=== PATIENT | male | born 1960 ===

== ENCOUNTER 2025-01-14 14:32 | Inpatient (IN) | payer OTHER, SELFPAY ==
[2025-01-14] VITALS (30 sets, daily range): BP systolic 91–127; BP diastolic 58–85; BMI 26.3; BMI 25.2
--- NOTE | 2025-01-14 12:35 | ED.GENMED ---
Addendum entered and electronically signed by Adal Nesbitt PA-C 01/14/25 16:29:
Please note dictation error in MDM, it should read 'fomepizole' instead of omeprazole, for treatment of toxic alcohol ingestion
Original Note:
History of Present Illness
<Adal Nesbitt PA-C - Last Filed: 01/14/25 16:03>
General
Chief Complaint: Overdose Intentional
Time Seen by Provider: 01/14/25 12:28
History of Present Illness
History of Present Illness:
64-year-old male arrives via EMS for evaluation of altered mental status and suspected intentional overdose. Patient was found by his spouse in the vehicle of a nearby parking lot, the car was not running at the time. She states he was talking to
him and admitted to being intoxicated, noted that there was a cup of 'bourbon' as well as a 'red bottle' of an unspecified liquid in the car with him. EMS reported to nursing staff that the patient was found with 'empty bottles of whiskey,
gasoline, and antifreeze'. On arrival the patient is somnolent and does not answer questions appropriately. On initial evaluation the is not present for further history
Review of Systems
<Adal Nesbitt PA-C - Last Filed: 01/14/25 16:03>
Review of Systems
Allergies reviewed?: Yes
All Other Systems: ROS reviewed and negative except as documented in HPI and ROS
Phy Exam
<Adal Nesbitt PA-C - Last Filed: 01/14/25 16:03>
Physical Exam
Physical Exam:
GEN: Somnolent
Eyes: PERRLA, EOMs intact, no scleral icterus
HENT: NCAT, oral mucosa moist
Lungs: CTAB, no wheezes, rales, rhonchi, normal chest wall excursion
Cardiac: RRR, no M/R/G, no peripheral edema. Radial pulses 2+ bilat
Abdomen: S, NT, ND, NABS, no masses or hepatosplenomegaly
Neuro: Somnolent, arouses to loud verbal stimuli, speech slurred and markedly confused, does not follow commands
MSK: No gross deformity or ecchymosis. No edema. No digital clubbing
Skin: No rashes, petechiae. Normal color, no pallor or jaundice.
Psych: Calm, cooperative, proper hygiene
Course
<Adal Nesbitt PA-C - Last Filed: 01/14/25 16:03>
Orders/Labs/Results
Orders:
Orders
01/14/25 12:24
Etomidate [Amidate] 40 mg .ROUTE .STK-MED ONE
Succinylcholine Chloride [Anectine] 200 mg .ROUTE .STK-MED ONE
01/14/25 12:30
Electrocardiogram (*1) Urgent
Reason for Study: QTc Monitoring
EKG- Treatment ONCE
Lactic Acid Q4H
Comment: CANCEL 2nd LACTIC ACID IF 1st LACTIC ACID IS LESS THAN 2
01/14/25 12:39
Acetaminophen Urgent
Alcohol Urgent
Complete Blood Count/With Diff Urgent
Comprehensive Metabolic Panel Urgent
Lactic Acid Q4H
Comment: CANCEL 2nd LACTIC ACID IF 1st LACTIC ACID IS LESS THAN 2
Salicylate Urgent
Serum Osmolality Urgent
Venous Blood Gas Urgent
%Oxygen/Room Air: 97
01/14/25 12:41
Ondansetron Injectable [Zofran] 4 mg IV NOW STA
01/14/25 13:03
0.9% Sodium Chloride 1000 ml [Nss] 1,000 ml IV BOLUS
01/14/25 13:07
Fomepizole 1,320 mg 0.9% Sodium Chloride 100 ml [Nss] 100 ml IV NOW
Thiamine Injection 100 mg IV NOW STA
01/14/25 13:15
Propofol 1,000,000 Mcg/100 ml [Diprivan] 1,000,000 mcg in 100 ml IV PER PROTOCOL
Indication:: Deep Sedation
Begin Infusion:: Now
Goal:: RASS -3 to -5 or BIS < 60 or ventilator synchrony
Maximum dose in mcg/kg/min:: 50
Initial Dose in mcg/kg/min:: 20
Titration Instructions:: Titrate by 5-10 mcg/kg/min every 5 minutes until RASS -3 to -5 or
Titration Instructions:: BIS < 60 or ventilator synchrony is met.
Titration Instructions:: Administer analgesia bolus dose(s) & titrate analgesia prior to
Titration Instructions:: adjusting sedation.
Taper Instructions:: If RASS is at or below goal for 4 consecutive hours decrease infusion by
Taper Instructions:: 5-10 mcg/kg/min every 2 hours. Do not wean infusion to off if patient is
Taper Instructions:: receiving a continuous NMBA or has received bolus NMBA with the past 3 hrs
Over-sedation Instructions:: If BIS < 40 and synchronous with ventilator decrease infusion by
Over-sedation Instructions:: 5-10 mcg/kg/min every 2 hour until BIS = 40-60.
Notify provider:: immediately if patient exhibits signs/symptoms of propofol-related
Notify provider:: infusion syndrome.
Additional Instructions:: Patient MUST be mechanically ventilated and MUST receive analgesia.
01/14/25 13:28
CR Chest Portable - 1 View Urgent
Comment:
Reason For Exam: post intubation
Reason Study Needs to be Portable: Unable to Transport
01/14/25 13:53
CT Head W/o Iv Contrast Urgent
Comment:
Reason For Exam: AMS
Shelley Placement- Treatment ONCE
Reason for insertion: I&O's Critical Care
01/14/25 13:54
Add On- LAB Routine
Tests Added?: serum methanol, serum isopropanol
01/14/25 14:00
Ethylene Glycol [S] Routine
Triglycerides Routine
Comment: baseline levels with propofol infusion
01/14/25 14:02
Admit/Transfer Patient As Directed
Co-Sign Provider:
Level of Care: Inpatient admission
Assign to:: ICU
Physician / Group: Hospitalist
Diagnosis: Polysubstance Intoxication/Suicide Attempt
Patient Condition: Serious
Reason for Hospitalization: Intubation for airway protection
IV medication for polysubstance ingestion/suicide attempt
Possible dialysis
Expected length of stay greater than two midnights?: Yes
ELOS- Estimated Length of Stay in days: 5
I certify the patient meets the requirements for IP care: Yes
Urinalysis Reflex To Culture Urgent
Date Specimen was Collected: 01/14/25
Time Specimen was Collected: 14:01
Urine Drug Abuse Screen Urgent
Date Specimen was Collected: 01/14/25
Time Specimen was Collected: 14:01
Urine Microscopic Reflex Cult Urgent
PRN Pain Medication Management As Directed
May give lesser potent ordered pain med per pt: Yes
preference::
Protocol:: Medication orders for pain may be administered in a
manner that supports deferring to patient preference
when the pt is:
- Requesting an ordered lesser potent pain medication.
Least to most potent pain medications are defined
as: acetaminophen < NSAID < tramadol < opioids
(morphine, oxycodone, hydromorphone).
- Requesting a lesser dose of the same medication IF
ORDERED.
- Requesting a less intrusive route of administration
if both routes are prescribed by the provider (PO <
IV).
01/14/25 14:15
Code Status As Directed
Resuscitation Status: Full Code
01/14/25 15:05
Carboxyhemoglobin Urgent
01/14/25 15:48
CMP [Comprehensive Metabolic Panel] Q2H
Serum Osmolality Q2H
Venous Blood Gas Q2H
%Oxygen/Room Air: 100
Comment: intubated, sedated, antifreeze ingestion
01/14/25 15:48
DX Deep Vein Thrombosis Video Routine
01/14/25 17:48
CMP [Comprehensive Metabolic Panel] Q2H
Serum Osmolality Q2H
Venous Blood Gas Q2H
%Oxygen/Room Air: 100
Comment: intubated, sedated, antifreeze ingestion
01/14/25 18:00
Enoxaparin Sodium [Lovenox] 40 mg SC QPM
01/14/25 19:48
CMP [Comprehensive Metabolic Panel] Q2H
Serum Osmolality Q2H
Venous Blood Gas Q2H
%Oxygen/Room Air: 100
Comment: intubated, sedated, antifreeze ingestion
01/14/25 21:48
CMP [Comprehensive Metabolic Panel] Q2H
Serum Osmolality Q2H
Venous Blood Gas Q2H
%Oxygen/Room Air: 100
Comment: intubated, sedated, antifreeze ingestion
01/14/25 23:48
Serum Osmolality Q2H
01/15/25 01:00
Fomepizole 880 mg 0.9% Sodium Chloride 100 ml [Nss] 100 ml IV Q12H
01/17/25 06:00
Triglycerides Q3D
Comment: every 72 hours while patient is on propofol
01/20/25 06:00
Triglycerides Q3D
Comment: every 72 hours while patient is on propofol
01/23/25 06:00
Triglycerides Q3D
Comment: every 72 hours while patient is on propofol
Abnormal Lab Results
01/14/25 01/14/25
12:39 14:02
RBC 3.56 L 10^6/uL
(4.70-6.10)
Hgb 12.7 L g/dL
(13.0-18.0)
Hct 36.9 L %
(39.0-52.0)
MCV 103.7 H fL
(80.0-94.0)
MCH 35.7 H pg
(27.0-31.0)
VBG pCO2 51 H mmHg
(35-48)
VBG pO2 58 H mmHg
(30-50)
VBG HCO3 30.2 H mmol/L
(22-27)
Glucose 101 H mg/dl
(70-99)
Serum Osmolality 454 H mOsm/kg
(275-300)
Lactic Acid 3.2 H mmol/L
(0.7-2.0)
Alkaline Phosphatase 30 L U/L
(38-126)
Ur Occult Blood Reflex 1+ A
(Negative)
Urine Albumin (Reflex) 1+ A
(Neg - Trace)
Salicylates < 1.0 L mg/dl
(2.0-20.0)
Acetaminophen < 10 L ug/ml
(10-30)
01/14/25 12:39
01/14/25 12:39
Vital Signs
Initial and Last Documented VS:
Initial Vital Signs
Pulse Resp Pulse Ox
90 13 90
01/14/25 12:30 01/14/25 12:30 01/14/25 12:30
Last Documented Vital Signs
Temp Pulse Resp BP Pulse Ox
97.7 F 88 16 91/58 100
01/14/25 12:45 01/14/25 15:00 01/14/25 15:00 01/14/25 15:00 01/14/25 15:00
<Gabo Whitney, - Last Filed: 01/14/25 13:38>
Orders/Labs/Results
Orders:
Orders
01/14/25 12:24
Etomidate [Amidate] 40 mg .ROUTE .STK-MED ONE
Succinylcholine Chloride [Anectine] 200 mg .ROUTE .STK-MED ONE
01/14/25 12:30
Electrocardiogram (*1) Urgent
Reason for Study: QTc Monitoring
EKG- Treatment ONCE
Lactic Acid Q4H
Comment: CANCEL 2nd LACTIC ACID IF 1st LACTIC ACID IS LESS THAN 2
01/14/25 12:39
Acetaminophen Urgent
Alcohol Urgent
Complete Blood Count/With Diff Urgent
Comprehensive Metabolic Panel Urgent
Lactic Acid Q4H
Comment: CANCEL 2nd LACTIC ACID IF 1st LACTIC ACID IS LESS THAN 2
Salicylate Urgent
Serum Osmolality Urgent
Venous Blood Gas Urgent
%Oxygen/Room Air: 97
01/14/25 12:41
Ondansetron Injectable [Zofran] 4 mg IV NOW STA
01/14/25 13:03
0.9% Sodium Chloride 1000 ml [Nss] 1,000 ml IV BOLUS
01/14/25 13:07
Fomepizole 1,320 mg 0.9% Sodium Chloride 100 ml [Nss] 100 ml IV NOW
Thiamine Injection 100 mg IV NOW STA
01/14/25 13:15
Propofol 1,000,000 Mcg/100 ml [Diprivan] 1,000,000 mcg in 100 ml IV PER PROTOCOL
Indication:: Deep Sedation
Begin Infusion:: Now
Goal:: RASS -3 to -5 or BIS < 60 or ventilator synchrony
Maximum dose in mcg/kg/min:: 50
Initial Dose in mcg/kg/min:: 20
Titration Instructions:: Titrate by 5-10 mcg/kg/min every 5 minutes until RASS -3 to -5 or
Titration Instructions:: BIS < 60 or ventilator synchrony is met.
Titration Instructions:: Administer analgesia bolus dose(s) & titrate analgesia prior to
Titration Instructions:: adjusting sedation.
Taper Instructions:: If RASS is at or below goal for 4 consecutive hours decrease infusion by
Taper Instructions:: 5-10 mcg/kg/min every 2 hours. Do not wean infusion to off if patient is
Taper Instructions:: receiving a continuous NMBA or has received bolus NMBA with the past 3 hrs
Over-sedation Instructions:: If BIS < 40 and synchronous with ventilator decrease infusion by
Over-sedation Instructions:: 5-10 mcg/kg/min every 2 hour until BIS = 40-60.
Notify provider:: immediately if patient exhibits signs/symptoms of propofol-related
Notify provider:: infusion syndrome.
Additional Instructions:: Patient MUST be mechanically ventilated and MUST receive analgesia.
01/14/25 13:28
CR Chest Portable - 1 View Urgent
Comment:
Reason For Exam: post intubation
Reason Study Needs to be Portable: Unable to Transport
01/14/25 13:53
CT Head W/o Iv Contrast Urgent
Comment:
Reason For Exam: AMS
Shelley Placement- Treatment ONCE
Reason for insertion: I&O's Critical Care
01/14/25 13:54
Add On- LAB Routine
Tests Added?: serum methanol, serum isopropanol
01/14/25 14:00
Ethylene Glycol [S] Routine
Triglycerides Routine
Comment: baseline levels with propofol infusion
01/14/25 14:02
Admit/Transfer Patient As Directed
Co-Sign Provider:
Level of Care: Inpatient admission
Assign to:: ICU
Physician / Group: Hospitalist
Diagnosis: Polysubstance Intoxication/Suicide Attempt
Patient Condition: Serious
Reason for Hospitalization: Intubation for airway protection
IV medication for polysubstance ingestion/suicide attempt
Possible dialysis
Expected length of stay greater than two midnights?: Yes
ELOS- Estimated Length of Stay in days: 5
I certify the patient meets the requirements for IP care: Yes
Urinalysis Reflex To Culture Urgent
Date Specimen was Collected: 01/14/25
Time Specimen was Collected: 14:01
Urine Drug Abuse Screen Urgent
Date Specimen was Collected: 01/14/25
Time Specimen was Collected: 14:01
Urine Microscopic Reflex Cult Urgent
PRN Pain Medication Management As Directed
May give lesser potent ordered pain med per pt: Yes
preference::
Protocol:: Medication orders for pain may be administered in a
manner that supports deferring to patient preference
when the pt is:
- Requesting an ordered lesser potent pain medication.
Least to most potent pain medications are defined
as: acetaminophen < NSAID < tramadol < opioids
(morphine, oxycodone, hydromorphone).
- Requesting a lesser dose of the same medication IF
ORDERED.
- Requesting a less intrusive route of administration
if both routes are prescribed by the provider (PO <
IV).
01/14/25 14:15
Code Status As Directed
Resuscitation Status: Full Code
01/14/25 15:05
Carboxyhemoglobin Urgent
01/14/25 15:48
CMP [Comprehensive Metabolic Panel] Q2H
Serum Osmolality Q2H
Venous Blood Gas Q2H
%Oxygen/Room Air: 100
Comment: intubated, sedated, antifreeze ingestion
01/14/25 15:48
DX Deep Vein Thrombosis Video Routine
01/14/25 17:48
CMP [Comprehensive Metabolic Panel] Q2H
Serum Osmolality Q2H
Venous Blood Gas Q2H
%Oxygen/Room Air: 100
Comment: intubated, sedated, antifreeze ingestion
01/14/25 18:00
Enoxaparin Sodium [Lovenox] 40 mg SC QPM
01/14/25 19:48
CMP [Comprehensive Metabolic Panel] Q2H
Serum Osmolality Q2H
Venous Blood Gas Q2H
%Oxygen/Room Air: 100
Comment: intubated, sedated, antifreeze ingestion
01/14/25 21:48
CMP [Comprehensive Metabolic Panel] Q2H
Serum Osmolality Q2H
Venous Blood Gas Q2H
%Oxygen/Room Air: 100
Comment: intubated, sedated, antifreeze ingestion
01/14/25 23:48
Serum Osmolality Q2H
01/15/25 01:00
Fomepizole 880 mg 0.9% Sodium Chloride 100 ml [Nss] 100 ml IV Q12H
01/17/25 06:00
Triglycerides Q3D
Comment: every 72 hours while patient is on propofol
01/20/25 06:00
Triglycerides Q3D
Comment: every 72 hours while patient is on propofol
01/23/25 06:00
Triglycerides Q3D
Comment: every 72 hours while patient is on propofol
Abnormal Lab Results
01/14/25 01/14/25
12:39 14:02
RBC 3.56 L 10^6/uL
(4.70-6.10)
Hgb 12.7 L g/dL
(13.0-18.0)
Hct 36.9 L %
(39.0-52.0)
MCV 103.7 H fL
(80.0-94.0)
MCH 35.7 H pg
(27.0-31.0)
VBG pCO2 51 H mmHg
(35-48)
VBG pO2 58 H mmHg
(30-50)
VBG HCO3 30.2 H mmol/L
(22-27)
Glucose 101 H mg/dl
(70-99)
Serum Osmolality 454 H mOsm/kg
(275-300)
Lactic Acid 3.2 H mmol/L
(0.7-2.0)
Alkaline Phosphatase 30 L U/L
(38-126)
Ur Occult Blood Reflex 1+ A
(Negative)
Urine Albumin (Reflex) 1+ A
(Neg - Trace)
Salicylates < 1.0 L mg/dl
(2.0-20.0)
Acetaminophen < 10 L ug/ml
(10-30)
01/14/25 12:39
01/14/25 12:39
Vital Signs
Initial and Last Documented VS:
Initial Vital Signs
Pulse Resp Pulse Ox
90 13 90
01/14/25 12:30 01/14/25 12:30 01/14/25 12:30
Last Documented Vital Signs
Temp Pulse Resp BP Pulse Ox
97.7 F 88 16 91/58 100
01/14/25 12:45 01/14/25 15:00 01/14/25 15:00 01/14/25 15:00 01/14/25 15:00
Procedures
<Adal Nesbitt PA-C - Last Filed: 01/14/25 16:03>
Intubations
Procedure completed by: Adal Nesbitt PA-C
Method of Intubation: glidescope
Tube size (cm): 8.0
Placement confirmed by: auscutation, CXR and direct visualization
Breath sounds after intubation: equal
Intubation complications: no complications
Additional information:
25cm at teeth
Initial vent settings Rate 16, TV 500, PEEP 5, FIO2 100%
<Adal Nesbitt PA-C - Last Filed: 01/14/25 16:03>
MDM/Problems Addressed
MDM/Problems Addressed:
After initial evaluation the patient's mental status rapidly deteriorated ultimately requiring need for mechanical ventilation for airway stabilization. The case was discussed with [facility] toxicology on-call who recommended empiric
administration of fomepizole as well as thiamine and folate given suspected alcohol overdose. At the time of this conversation I did not have results for labs including VBG or serum osmolality. Nephrology was consulted in the unlikely event that
the patient's renal function deteriorates requiring dialysis. After discussion with the spouse, it is not immediately clear that antifreeze was definitively present in the car. We did add carboxyhemoglobin levels as he was in a car however there
was parked outside and the engine was not running. CT of the head will also be obtained for completeness as it is not immediately clear why patient with known chronic alcoholism and an alcohol level of 350 would be so obtunded to his to require
mechanical ventilation.
<Gabo Whitney DO - Last Filed: 01/14/25 13:38>
*Pulse Oximetry
Patient hypoxic: yes (Sats as low as 77% on room air with good waveform)
*Critical Care Note
Total Time (30-74mins, 75-104mins- exclusive of procedures): 60min
comment:
Concern for polysubstance overdose. Possible/likely ethylene glycol overdose. Lactic 3.2. pH 7.38. Alcohol 353 but seems to be out of proportion to the clinical condition. The patient is markedly obtunded, MCV is high suggesting chronic alcohol
use. Consulted with toxicology at [facility] who recommends omeprazole. Chest x-ray interpreted by me with adequate position of endotracheal tube above the felicita and just below the clavicles
ED Attending Note
<Adal Nesbitt PA-C - Last Filed: 01/14/25 16:03>
-
Portions of this chart may have been created with voice recognition software.� Occasional wrong word or��sound alike� substitutions may have occurred due to the inherent limitations of voice recognition software.
<Gabo Whitney DO - Last Filed: 01/14/25 13:38>
ED Attending Note
Patient seen and examined by attending physician: Yes
I performed the substantive portion of visit, reviewed & personally made and approve the management plan that is documented in note by myself or BUBBA.: Yes
ED Attending Note:
I evaluated the patient at bedside. The patient has a decreased GCS of about 7. Intermittently apneic. At times end-tidal is in the 30s but then goes down to around 10.
Discharge Plan
Departure
Patient Disposition: Admit
Date of Disposition: 01/14/25
Time of Disposition: 13:32
Admit to: ICU
Presentation/result/management discussed w/ accepting MD/DO: Hospitalist
Discharge Problem:
Suicide attempt by substance overdose, Ethanol poisoning
Interventions
Interventions:
[facility] Fall Risk Assessment Tool Last Done: 01/14/25 12:23
*Nursing Disposition Last Done: 01/14/25 15:53
ED- Cardiac Assessment Last Done: 01/14/25 12:55
ED- Neurological Assessment Last Done: 01/14/25 12:55
ED-Psychological Assessment Last Done: 01/14/25 12:55
ED- Pulmonary Assessment Last Done: 01/14/25 12:55
Discharge Date and Time
Discharge Date/Time: 01/14/25 14:42
[2025-01-14 12:54] LABS: Hematocrit 36.9 % (39.0-52.0); Hemoglobin 12.7 g/dL (13.0-18.0); Mean Corp Hgb Conc. 34.4 g/dL (33.0-37.0); Mean Corpuscular Volume 103.7 fL (80.0-94.0); Nucleated Red Blood Cells % 0 % (-); Platelet Count 301 10^3/uL (130-400); Red Cell Dist. Width 13.0 % (11.5-14.5); Venous Blood Gas B.E. 4.0 mmol/L (-4 to +4); Venous Blood Gas O2 Sat % 83.9 %
[2025-01-14 13:08] LABS: ALT (SGPT) 31 U/L (0-50); AST (SGOT) 42 U/L (17-59); Acetaminophen < 10 ug/ml (10-30); Albumin 4.2 g/dl (3.5-5.0); Alkaline Phosphatase 30 U/L (38-126); Blood Urea Nitrogen 10 mg/dl (9-20); Calcium 8.7 mg/dl (8.4-10.2); Chloride 103 mmol/L (98-107); Estimated Creatinine Clearance 114 ml/min; Glucose 101 mg/dl (70-99); Potassium 3.8 mmol/L (3.5-5.1); Salicylate < 1.0 mg/dl (2.0-20.0); Sodium 142 mmol/L (135-145); Total Protein 6.8 g/dl (6.3-8.2); eGFR > 60.00
[2025-01-14] MEDS: NSS 1000 IV (13:17)
[2025-01-14 13:19] LABS: Carbon Dioxide 29 mmol/L (22-30)
[2025-01-14] MEDS: DIPRIVAN 100 IV ×2 (13:31→20:04)
--- NOTE | 2025-01-14 13:34 | PHANOTE ---
Addendum entered by Margarita Devine 01/14/25 14:18:
spouse came for a short amount of time and left
Original Note:
MED REC NOTE- PATIENT FAMILY ON WAY, WILL ASK IF THEY KNOW PATIENT MEDICATION AT HOME
[2025-01-14] MEDS: FOMEPIZOLE 101.32 MG IV (13:45)
--- NOTE | 2025-01-14 13:52 | HPS.HSE ---
Family Physician
-
Family Physician: NEIDA MONGE,
Chief Complaint
-
Antifreeze ingestion
History of Present Illness
64 yr old male with k/h/o hypertension, hypothyroidism, chronic alcohol intake for the past 1 year admitted to the ER with incoherent state. was accompanied by the patient.
History obtained from the patient's .
When his returned from the work she saw his car and he was incoherent along with antifreeze container inside the car. She saw he was having 1 tumbler of some liquid. He was completely incoherent and mentioned' he wants to kill himself', the
antifreeze bottle near to him was almost pretty full, he might have had small amount. At that time his eyes was closed and continuously speaking irrelevant. According to his he used to drink alcohol every day which includes 1 big bottle of
scotch, or whiskey, and every day he used to feel depressed. He had a past history of Tylenol ingestion as a suicide attempt previously a year ago (which was told by himself to the ), he recently a month ago visited PCP and did not discussed
regards his alcohol intake and he denied of any alcohol usage, at that time his PHQ for depression scale was 0.
He is compliant with his hypertension medications lisinopril, hydrochlorothiazide. 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
At ED when I saw the patient around 1:30 PM patient was intubated and receiving propofol, with Shelley's catheter urine output around 1800 mL with dark yellow.
past medical history of hypertension currently taking lisinopril 20, hydrochlorothiazide 12.5 mg, hypothyroidism taking levothyroxine, vitamin D deficiency, right eye legally blind.
He had a past surgical history includes tonsillectomy, bilateral myringotomy tubes.
Medical History
Past Medical History
Past Medical History: Reports HTN and Hypothyroidism
Additional Past Medical History:
Past Surgical History: Reports Tonsilectomy
Social History
Tobacco: Non-smoker
Alcohol: Daily (1 bottle of whiskey,)
Drug: None
Personal:
Living: With Family
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
Family History
Family History: Other (Strong family history of depression in mom when she was around teenager and ECT received)
Allergies / Home Medications
Allergies
Allergy/AdvReac Type Severity Reaction Status Date / Time
No Allergy Information Allergy Unverified 01/14/25 13:23
Available
Home Medications
levothyroxine 75 mcg tablet (Synthroid) 75 mcg PO DAILY 01/14/25
lisinopril 20 mg-hydrochlorothiazide 12.5 mg tablet 1 tab PO DAILY 01/14/25
Allergies reflects when Allergies were last updated in [employer].
Allergy/Medication List:
as mentioned before.
If medication reconciliation has not been performed, why?: Unresponsive and Other (Information collected from his )
Review of Systems
-
History Source: Family (Patient's )
A 12 point ROS was completed and negative except as noted: Yes
Physical Exam
Vital Signs
Vital Signs
Temp Pulse Resp BP Pulse Ox
97.7 F 83 16 117/74 100
01/14/25 12:45 01/14/25 13:00 01/14/25 13:00 01/14/25 13:00 01/14/25 13:00
Physical Exam
General: Intubated (50 L/minute)
HEENT: PERRLA (Bilateral nonreactive constricted pupil ) and Other
Respiratory: Other (On intubation with bilateral respiration present)
Cardiac: S1/S2
GI: Soft, Normal Bowel Sounds (Hypoechoic bowel sounds), Flat and No Hepatosplenomegaly
Genito-urinary: No costovertebral tender
Musculoskeletal: Clubbing and No Clubbing
Skin: Warm
Neuro: Sedated (Patient was sedated with the propofol and currently on intubation.) and Other
Hematologic/Lymphatic: No Lymphadenopathy
Psych: Suicidal
Laboratory Results
-
01/14/25 12:39
01/14/25 12:39
Laboratory Results
Lactic Acid 3.2 mmol/L (0.7-2.0) H 01/14/25 12:39
Total Bilirubin 0.4 mg/dl (0.2-1.3) 01/14/25 12:39
AST 42 U/L (17-59) 01/14/25 12:39
ALT 31 U/L (0-50) 01/14/25 12:39
Alkaline Phosphatase 30 U/L (38-126) L 01/14/25 12:39
Impression/Plan
-
64 yr old male with k/h/o hypertension, hypothyroidism, chronic alcohol intake for the past 1 year admitted to the ER with incoherent state due to ethylene glycol ingestion, required intubation at the ED. was accompanied by the patient.
IMPRESSION and PLAN:
when he got admitted 119/75 HR 88,
pt current vitals: blood pressure is 99/67 on iv fluids 1l 100ml/hr , on propofol 13. 2 mcg/ min for the sedation,
with foleys catheter 1800 ml output with dark yellow,
HR- 78, RR- 19. currently he is intubated with pip 17/8 == 16/min with 50 liters of peak flow, sao2- 100
The patient has a decreased GCS of about 7. Intermittently apneic. At times end-tidal is in the 30s but then goes down to around 10.
chest x ray finding on 01/14:
1. Endotracheal tube projects over the trachea above the felicita in satisfactory position.
2. Haziness of the left hemidiaphragm, which may represent left lower lobe subsegmental atelectasis.
# Antifreeze ingestion-ethylene glycol/methanol:
At the time of admit serum osmole 454 high, lactic acid 3.2 high.
Antidote for ethanol along with IV fluids currently going on with a breathing support.
Hemodialysis to filter the toxins in future.
Fomepizole 1320 mg at 0.9% sodium chloride 100 mL IV currently going on, ( fomepizole loading dosage serum 15 mq/ kg once, followed by 10 mg/kg maintenance),
Continue IV fluids Ringer lactate (for the bicarbonate),
Continue propofol currently for sedation, because the patient on intubation
Monitor serum osmolarity, urine osmolarity for ethylene glycol ingestion.
Continue to monitor BMP every 2 hourly
Repeat ABG to compare anion gap metabolic acidosis
Carboxyhemoglobin urgent
Aspiration precaution
Toxicology studies include urine opiates, buprenorphine, oxycodone, methadone, barbiturates, tricyclic's, phencyclidine, amphetamines, methamphetamines, benzodiazepines, cocaine, marijuana negative.
Triglycerides protein to know the baseline after administering propofol infusion.
Urinalysis reflex to culture ordered.
ABG probably due to ethylene glycol poisoning which currently managed with etomidate 40 mg,
Hepatitis panel pending
Repeat triglycerides panel every 3 days.
PT, INR, APTT pending
Clinical Biostatistics Director,
nephrology consulted for the future if the patient needs hemodialysis.
# Alcohol usage disorder:
His last drink yesterday
Alcohol level was 353
Calculated MSAS protocol once he becomes conscious.
Alcohol, beta hydroxybutyrate screening results are pending.
# gasoline ingestion:
currently on scd due to bleeding risk,
iv ppi prophylaxis include Protonix 40 mg IV started,
#Suicidal attempt psychiatrist consultation in future
# Hypothyroidism:
TSH monitoring
Continue levothyroxine
Code: Full
Disposition: Home
Diet: N.p.o. currently on IVF
DVT: SCD
[2025-01-14] MEDS: THIAMINE INJECTION 100 MG IV (14:08)
[2025-01-14] MEDS: ZOFRAN 4 MG IV (14:10)
--- NOTE | 2025-01-14 14:21 | W.CON.NEPH ---
Consultation
-
Date/Time Consultation Requested: January 14, 2025 1:30 PM
Date/Time Consultation Performed: January 14, 2025 1:30 PM
Requesting Provider: Dr. Nesbitt
Performing Provider: Dr. Alanis
Reason for Consultation: Toxic ingestion of ethylene glycol gasoline alcohol
Medical History
-
Chief Complaint: Toxic ingestion of ethylene glycol alcohol and gasoline
History of Present Illness:
The patient is a 64-year-old male with a history of hypertension maintained on lisinopril and hydrochlorothiazide. The patient also has a history of hypothyroidism is maintained on Synthroid. Apparently the patient has had previous suicide
attempts with pills as per discussion with his . The patient was brought to the emergency room after being found in an altered mental status in his car by his after what appears to be an ingestion of alcohol ethylene glycol and possibly
gasoline. On arrival to the hospital due to his altered mental status he underwent intubation. Subsequent ethyl alcohol level was 353. Nephrology was consulted for possible dialysis requirement for ethylene glycol overdose.
Past Medical History
Hypertension
Hypothyroid
Previous suicide
Social History
Tobacco: Non-Smoker
Alcohol: Chronic Alcoholic
Personal:
Living: With Family
Employment: Employed
Family History
No CKD
Allergies / Home Medications
Allergy/AdvReac Type Severity Reaction Status Date / Time
No Allergy Information Allergy Unverified 01/14/25 13:23
Available
�Medication �Instructions �Recorded �Confirmed �Type
levothyroxine 75 mcg tablet 75 mcg PO DAILY 01/14/25 History
(Synthroid)
lisinopril 20 1 tab PO DAILY 01/14/25 History
mg-hydrochlorothiazide 12.5 mg
tablet
Review of Systems
-
Unable to obtain full review of systems at this time due to: Acuity and Patient Intubation
History Source: Patient
All other systems: Negative unless noted
Physical Exam
Vital Signs
Vital Signs
Temp Pulse Resp BP Pulse Ox
97.7 F 88 17 99/67 99
01/14/25 12:45 01/14/25 14:15 01/14/25 14:15 01/14/25 14:00 01/14/25 14:15
Lab Results
01/14/25 12:39
01/14/25 12:39
WBC 5.8 10^3/uL (4.8-10.8) 01/14/25 12:39
RBC 3.56 10^6/uL (4.70-6.10) L 01/14/25 12:39
Hgb 12.7 g/dL (13.0-18.0) L 01/14/25 12:39
Hct 36.9 % (39.0-52.0) L 01/14/25 12:39
Plt Count 301 10^3/uL (130-400) 01/14/25 12:39
Sodium 142 mmol/L (135-145) 01/14/25 12:39
Potassium 3.8 mmol/L (3.5-5.1) 01/14/25 12:39
Chloride 103 mmol/L (98-107) 01/14/25 12:39
Carbon Dioxide 29 mmol/L (22-30) 01/14/25 12:39
BUN 10 mg/dl (9-20) 01/14/25 12:39
Creatinine 0.7 mg/dL (0.7-1.3) 01/14/25 12:39
eGFR > 60.00 01/14/25 12:39
Glucose 101 mg/dl (70-99) H 01/14/25 12:39
Calcium 8.7 mg/dl (8.4-10.2) 01/14/25 12:39
Albumin 4.2 g/dl (3.5-5.0) 01/14/25 12:39
Physical Exam
General: Intubated and sedated on propofol
HEENT: ET tube down oropharyngeal airway ear/Nose Intact, Hearing Normal, Oropharynx Clear/Moist, Dentition Intact, Facial Symmetry, Neck Supple, Neck: Trachea Midline, No JVD and No Thyromegaly, no Bruits
Respiratory: Clear to auscultation bilaterally with mechanical lung excursion
Cardiac: S1/S2 and Regular Rate/Rhythm
Breast: Deferred by me
Abdomen: Soft, Nontender, Nondistended, Normal Bowel Sounds and No Hepatosplenomegaly
Rectal: Deferred by Provider
Genito-urinary: No Costovertebral Tenderness
Extremities: No Clubbing, No Cyanosis and No Edema
Skin: No Rash or open lesions
Neuro: Nonfocal/Grossly Intact, CN II-XII (Intact) and Strength (Musculoskeletal exam 5 out of 5 both upper and lower extremities)
Hematologic/Lymphatic: No Cervical Lymphadenopathy, No Submandibular Lymphadenopathy and No Supraclavicular Lymphadenopathy
Psych: Intubated and sedate
Vascular: plus 2 pedal and radial pulses
Data Reviewed
-
Radiology: Image Personally Visualized and interpreted (Chest x-ray personally reviewed by myself no evidence of pneumonic process or congestive heart failure)
Medical Tests (Nuc Med, Echo etc): Other (EKG report normal sinus rhythm with left anterior fascicular block possible anterior wave ST elevations at 88 beats per per report)
Labs: Labs Reviewed by me (BMP CBC, serum osmolality)
Old Records: Reviewed (Reviewed previous old records from date September 17, 2024 creatinine 0.7)
Assessment/Plan
-
Impression:
Toxic ingestion of alcohol suspected gasoline in ethylene
History of hypertension
History of hypothyroid
Previous history of suicide
Vent dependent respiratory failure
Plan:
Would initiate IV fluids with normal saline at 150 cc/h
No evidence of renal GFR normal
No evidence of anion gap metabolic acidosis
Serum pH within normal limits per VBG
No evidence of endorgan damage
Patient intubated for airway protection in setting of altered mental status
Fomepizole provided for suspected ethylene glycol overdose
Osmolar gap :> 70 unmeasured:454 - calculated ~380) strongly suggest the presence of unmeasured osmoles including ethylene glycol, henceforth due to neurological changes and likely strong presence of elevated levels of ethylene glycol I will pursue
dialysis this evening
IR consulted for temp catheter placement
HD orders provided
45 minutes critical care time spent with patient
Patient is critically ill with intubation in the setting of toxic ingestion of alcohol and suspected ethylene glycol and gasoline
Total Time Spent with Patient (in minutes): 55 minutes
[2025-01-14 14:26] LABS: Triglycerides 70 mg/dl (10-149)
[2025-01-14 14:26] LABS: Urine Character Clear (Clear)
[2025-01-14 14:44] LABS: Urine Red Blood Cell 0-2 /HPF (0-2); Urine Squamous Cell 0-2 /LPF (Few)
[2025-01-14 14:45] LABS: Urine White Cell None Seen /HPF (0-5)
[2025-01-14 15:13] LABS: Carboxyhemoglobin 2.9 %
[2025-01-14] MEDS: SUBLIMAZE 100 MCG IV (16:10)
[2025-01-14 16:14] LABS: Glucose - Point of Care 80 mg/dl (70-99)
--- NOTE | 2025-01-14 16:15 | PTCARENOTE ---
IR at bedside to place temp HD cath for emergent HD. Pt medicated with fentanyl prior.
--- NOTE | 2025-01-14 16:22 | CON.INTV ---
Consultation
Consultation Request
Date/Time Consultation Requested: 01/14 1547
Date/Time Consultation Performed: 01/14 1600
Requesting Provider: Dr. Murphy
Performing Provider: Dr. Chapa; Dr. Becerra
Reason for Consultation: ICU Management
Medical History
-
Chief Complaint: AMS; suspected toxic ingestion
History of Present Illness:
Patient is a 64-year-old male with PMH of hypertension and depression who is being admitted to the ICU for management of altered mental status and suspected toxic ingestion. History cannot be obtained from patient, as he is currently sedated,
intubated, mechanically ventilated. No family currently present at bedside for collateral history. Per chart review and discussion with ED staff, patient's spotted his car in a parking lot near their house with the patient slumped over the
steering wheel this morning. The patient had apparently been drinking alcohol, and an additional unidentified red bottle of fluid was in the vehicle as well. This bottle still had fluid in it. Patient's then called EMS, who transported him
to the hospital. Per ED staff, patient was initially able to answer questions, but he subsequently became obtunded. ED labs remarkable for the following: Serum osmolality 454, lactate 3.2, alcohol 353. UDS, salicylate, acetaminophen,
carboxyhemoglobin unremarkable. VBG shows pH 7.3, pCO2 51, HCO3 30.2. Patient was intubated and mechanically ventilated before being transferred to the ICU for further care.
Past Medical History
Past Medical History: HTN and Psychiatric (Depression)
Allergies / Home Medications
Allergies
Allergy/AdvReac Type Severity Reaction Status Date / Time
No Allergy Information Allergy Unverified 01/14/25 13:23
Available
Home Medications
�Medication �Instructions �Recorded �Confirmed �Last Taken �Type
levothyroxine 75 mcg tablet 75 mcg PO DAILY 01/14/25 Unknown History
(Synthroid)
lisinopril 20 1 tab PO DAILY 01/14/25 Unknown History
mg-hydrochlorothiazide 12.5 mg
tablet
Review of Systems
-
Unable to Obtain full review of systems at this time due to: Patient Intubation
Vitals / Labs / Diagnostic Testing
Vital Signs
Temp Pulse Resp BP Pulse Ox
98.2 F 74 16 122/67 100
01/14/25 16:06 01/14/25 16:15 01/14/25 16:15 01/14/25 16:15 01/14/25 16:15
Diagnostic Testing:
Physical Exam
-
HEENT: Normocephalic
Cardiovascular: S1/S2, Regular Rhythm and Other (No M/R/G; pulses 2+ all extremities)
Respiratory: Clear and Other (Intubated, mechanically ventilated)
GI: Soft and Non Distended
Neurology: Other (Sedated)
Skin: Warm, Dry, Other (Mild blotchy, purple discoloration on medial left ankle; white area of discoloration in center of patient's back) and Other
Assessment
-
Assessment: Patient is a 64-year-old male with PMH of HTN and depression who is being managed in the ICU for AMS and suspected (though unidentified) toxic ingestion this morning. Patient was sedated, intubated, and mechanically ventilated in the ED
for AMS. Labs showed elevated lactate, serum osmolality, serum osmolal gap (65.4) with alcohol correction, and alcohol levels (353) along with normal pH on VBG, though this was taken post intubation. UDS, carboxyhemoglobin, salicylates, and
acetaminophen unremarkable. CXR and CT head unremarkable. Currently hemodynamically stable. Suspect TME 2/2 toxic ingestion.
Plan:
#Suspected toxic ingestion
#Toxic metabolic encephalopathy
Currently sedated, intubated, mechanically ventilated
Currently undergoing hemodialysis for suspected toxic ingestion
Continue propofol, lorazepam as needed for sedation
Continue pain control with fentanyl
Fomepizole administered in ED for possible ethylene glycol ingestion
NGT in place for decompression
Pending labs: Ethylene glycol, beta-hydroxybutyrate, CPK, repeat UA
Trend BMP, CBC, serum osmolality, lactate, blood gas
DVT PPx: Lovenox 40 mg SC daily
GI PPx: Pantoprazole 40 mg IV daily
[2025-01-14] MEDS: LR 1000 IV ×2 (16:39→23:30)
--- NOTE | 2025-01-14 16:40 | PN.IRAD.UPD ---
Update Note - IRAD
- -
15CM RIGHT SIDED TEMP PLACED IJ BEDSIDE @1630
[2025-01-14] MEDS: SUBLIMAZE 100 IV (16:57)
[2025-01-14 17:00] LABS: Hematocrit 35.8 % (39.0-52.0); Hemoglobin 12.4 g/dL (13.0-18.0); Mean Corp Hgb Conc. 34.6 g/dL (33.0-37.0); Mean Corpuscular Volume 101.1 fL (80.0-94.0); Platelet Count 298 10^3/uL (130-400); Red Cell Dist. Width 13.0 % (11.5-14.5)
[2025-01-14] MEDS: SUBLIMAZE 50 MCG IV (17:06)
[2025-01-14] MEDS: PROTONIX IV 40 MG IV (17:07)
[2025-01-14] MEDS: NSS (PRESERVATIVE FREE) 10 ML IV (17:07)
[2025-01-14 17:09] LABS: APTT 29.7 Sec (23.4-35.0); INR 1.04; PT 13.7 Sec (11.4-14.6)
[2025-01-14 17:36] LABS: Magnesium 2.2 mg/dl (1.6-2.3); Triglycerides 74 mg/dl (10-149)
[2025-01-14] MEDS: MANNITOL 25% 12.5 GRAMS IV ×2 (17:40→18:54)
--- NOTE | 2025-01-14 17:54 | W.PN.NEPH.HD ---
Assessment
-
patient was seen in the ICU for dialysis
bp stable
mannitol times onrone
Progress Note - Hemodialysis
-
Date of Service: January 14, 2025
Duration: 45 minutes and 2 hours
Potassium Bath: 3
Calcium Bath: 2.5
Opti-Dialyzer: 160
Ultrafiltration: Other (even)
Blood Flow: 300
Dialysate Flow: 600
[2025-01-14] MEDS: LOVENOX 40 MG SC (18:32)
[2025-01-14] MEDS: FOLVITE 1 MG TUBE (18:32)
--- NOTE | 2025-01-14 18:32 | PTCARENOTE ---
Received pt from ED ventilated, restrained with wilson draining cl yellow urine on propofol drip. CHG bath done upon arrival. Pt not following commands, but reaching towards ett while performing care. Shortly after arrival, IR at bedside to place
temp HD catheter. Pt medicated with fentanyl as charted prior to procedure. Once HD cath placed, NGT placed with minor difficulty as pt pt was not cooperative with instruction and was agitated. Chest and abd xray done and placement confirmed by
DR gabriel at bedside and HD was initiated. Assessment as charted.
's call was returned and said she found pt in their car after her daily walk about 2 blocks from their home and was slumped over saying 'I'm gonna kill myself' when she asked what was wrong. She reports he said this multiple times. She said he
had a tumbler that she emptied and another bottle that she emptied and then went home to call 911. Containers were left in car so medics were aware of what pt ingested. She said he left for work around 7 am and she found him about 1130. She did
call work and he was there this morning, but left early. reports that pt drinks daily, on the weekend when he wakes until he goes to bed. She reports he starts drinking after work, probably on his drive home. He has never stopped on sought
help for this, never gone through withdrawal per . Never had a seizure. She reports when he eats he usually vomits and cannot keep things down, just alcohol. No water. 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 She reports they are
bahai and requested a web services professional.
Otherwise please refer to work list.
[2025-01-14] MEDS: ATIVAN 2 MG IV (18:41)
[2025-01-14] MEDS: NSS (PRESERVATIVE FREE) 1 ML IV (18:41)
[2025-01-14 19:03] LABS: Hepatitis B Surface Antigen Negative (Negative)
[2025-01-14 19:21] LABS: Hepatitis C Antibody Negative (Negative)
[2025-01-14 19:28] LABS: GGTP 36 U/L (15-73)
[2025-01-14] MEDS: HEPARIN 2100 UNITS INTRACATH (19:59)
[2025-01-14] MEDS: FOMEPIZOLE 100.84 MG IV (20:22)
--- NOTE | 2025-01-14 20:30 | PTCARENOTE ---
Resumed care of pt this evening. Received pt intubated and sedated, on prop and vent gtts infusing via peripheral IV sites. Pt opens eyes to verbal and tactile stimuli. Pupils are equal and reactive to light. Pt can move all 4 extremities. Pt is NSR
w/ first degree heart block on telemetry. Pt has palpable radial and pedal pulses bilaterally. Pt tolerating vent settings satting at 100%. On auscultation pt lungs sound diminished TO. Pt has shallow respirations. Pt has left nare [place] sump NG
tube in place connected to LIS. BS are hypoactive. Shelley cath in place draining yellow colored urine. Skin is C/D/I.
[2025-01-14] MEDS: VITAMIN B1 100 MG TUBE (21:03)
[2025-01-14 21:35] LABS: Venous Blood Gas B.E. 5.8 mmol/L (-4 to +4); Venous Blood Gas O2 Sat % 80.4 %
[2025-01-14 22:01] LABS: ALT (SGPT) 29 U/L (0-50); AST (SGOT) 40 U/L (17-59); Albumin 3.9 g/dl (3.5-5.0); Alkaline Phosphatase 26 U/L (38-126); Blood Urea Nitrogen 4 mg/dl (9-20); Calcium 8.4 mg/dl (8.4-10.2); Carbon Dioxide 29 mmol/L (22-30); Chloride 101 mmol/L (98-107); Estimated Creatinine Clearance > 125 ml/min; Glucose 83 mg/dl (70-99); Potassium 3.5 mmol/L (3.5-5.1); Sodium 135 mmol/L (135-145); Total Protein 6.5 g/dl (6.3-8.2); eGFR > 60.00
[2025-01-15] VITALS (43 sets, daily range): BP systolic 112–163; BP diastolic 66–119; BMI 25.8; BMI 25.7
--- NOTE | 2025-01-15 00:30 | PTCARENOTE ---
Pt continues to tolerate vent settings satting at 100% pulse ox. Pt's mentation appears to be improving. Pt able to nod head appropriately to yes and no questions.
[2025-01-15 04:04] LABS: B.E. 4.0 mmol/L; HCO3 27.4 mmol/L (21-28); O2 Saturation % 100.0 % (94-98); PCO2 36 mmHg (35-48); PO2 131 mmHg (83-108)
[2025-01-15 04:05] LABS: O2 Therapy 50%
[2025-01-15 05:21] LABS: ALT (SGPT) 26 U/L (0-50); AST (SGOT) 33 U/L (17-59); Albumin 3.6 g/dl (3.5-5.0); Alkaline Phosphatase 25 U/L (38-126); Blood Urea Nitrogen 5 mg/dl (9-20); Calcium 8.4 mg/dl (8.4-10.2); Carbon Dioxide 27 mmol/L (22-30); Chloride 102 mmol/L (98-107); Estimated Creatinine Clearance > 125 ml/min; Glucose 81 mg/dl (70-99); Magnesium 1.7 mg/dl (1.6-2.3); Potassium 3.4 mmol/L (3.5-5.1); Sodium 136 mmol/L (135-145); Total Protein 5.8 g/dl (6.3-8.2); eGFR > 60.00
[2025-01-15 05:32] LABS: Hematocrit 32.4 % (39.0-52.0); Hemoglobin 11.3 g/dL (13.0-18.0); Mean Corp Hgb Conc. 34.9 g/dL (33.0-37.0); Mean Corpuscular Volume 101.3 fL (80.0-94.0); Nucleated Red Blood Cells % 0 % (-); Platelet Count 227 10^3/uL (130-400); Red Cell Dist. Width 13.2 % (11.5-14.5)
[2025-01-15] MEDS: SUBLIMAZE 100 IV ×2 (05:48→21:05)
[2025-01-15] MEDS: LR 1000 IV ×3 (05:50→20:56)
--- NOTE | 2025-01-15 06:10 | PTCARENOTE ---
Xi acevedo initiated by this RN for AM K level of 3.4.
[2025-01-15] MEDS: KCL 270 MEQ IV (06:18)
[2025-01-15 06:37] LABS: Urine Character Clear (Clear)
[2025-01-15 06:54] LABS: Urine Squamous Cell 0-2 /LPF (Few)
[2025-01-15 06:55] LABS: Urine Urothelial Cell 0-2 /LPF (FEW); Urine White Cell >100 /HPF (0-5)
--- NOTE | 2025-01-15 07:02 | W.PN.HOSP.TC ---
Today's Communication/Plan
-
Follow-up with encoding clerk for hemodialysis today
Repeat CBC, CMP, triglyceride
Currently patient on NG tube
Renew Ringer lactate.
Assessment / Plan
Assessment / Plan
64 yr old male with k/h/o hypertension, hypothyroidism, chronic alcohol intake for the past 1 year admitted to the ER with incoherent state due to ethylene glycol ingestion, required intubation at the ED.
Vitals: BP 120/76, MS 79, sat O2 100 with FiO2 40, RR 16, tidal volume 500, PEEP 5 with a peak airway pressure 7.
He is on sedation with propofol, followed by today fentanyl administered at morning.
I/O 3434/1700, NG tube in place administered vitamin B1.
On examination: Lungs right lower lobe mild crackles present, heart rate rhythm normal, no abdominal tenderness.
# Antifreeze ingestion-ethylene glycol/methanol:
Lab:
Serum Osmo 454 high at the time of admission-358(after hemodialysis)--328 high
Potassium 3.7 replenished with 40 mEq/L today, PT 13.7 , INR 1.04, APTT 29.7 WNL
pH 7.49, ABG O2 100, HCO3 27.4, pCO2 36--compensated with ventilation, fomepizole treatment.
Triglycerides 70--74
At the time of admission lactic acid 3.2 high--1.9 normal
Urinalysis negative for UTI
Carboxyhemoglobin 2.9
Toxicology positive for fentanyl, benzodiazepines, ethylene glycol pending
Hepatitis panel negative includes HBs antibody
Chest x-ray 01/15:
Mild opacity in the basilar segments of the lower lobes of both lungs which appears unchanged. Diagnostic possibilities are (1) subsegmental atelectasis/scarring or (2) mild aspiration pneumonia.
2. Mildly decreased bilateral lung volumes.
3. Endotracheal tube, nasogastric tube, and right IJ central venous catheter in place.
Head CT 01/14: No evidence of acute intracranial abnormality
Vascular ultrasound 01/14: unremarkable placement of nontunneled right internal jugular hemodialysis catheter. Chest radiograph ordered to confirm catheter positioning prior to use.
Abdominal x-ray 01/14:
The tip of the feeding tube is in the region of the gastric body. The tip of a central venous catheter is the region of the middle third of the superior vena cava.
Bowel: There is a nonobstructive bowel gas pattern.
No evidence of endorgan damage creatinine 0.6, GFR> 60 within normal limit
Ceramic Design Engineer recommended for hemodialysis for today after checking osmolar gap, ethylene glycol.
Initially Osmolar gap :> 70 unmeasured:454 - calculated ~380) strongly suggest the presence of unmeasured osmoles including ethylene glycol, henceforth due to neurological changes and likely strong presence of elevated levels of ethylene glycol will
pursue dialysis this evening.
Currently the patient is receiving Ringer lactate.
Monitor CBC, CMP
Repeat triglycerides because currently the patient is on propofol.
# Alcohol usage disorder:
His last drink yesterday
Alcohol level was 353
Calculated MSAS protocol once he becomes conscious.
Alcohol, beta hydroxybutyrate screening results are pending.
# gasoline ingestion:
currently on scd due to bleeding risk,
iv ppi prophylaxis include Protonix 40 mg IV started,
#Suicidal attempt psychiatrist consultation in future
# Hypothyroidism:
TSH monitoring
Continue levothyroxine
Code: Full
Disposition: Home
Diet: N.p.o. currently on IVF
DVT: SCD
Anticipated Discharge: 24 - 48 hours
Subjective/Interval History
-
Date of Service: January 15, 2025
Overnight history obtained from nurse, patient. He is close upon seeing for the answers is nodding his head. He has pain today.
Vitals: BP 120/76, MS 79, sat O2 100 with FiO2 40, RR 16, tidal volume 500, PEEP 5 with a peak airway pressure 7.
He is on sedation with propofol, followed by today fentanyl administered at morning.
I/O 3434/1700, NG tube in place administered vitamin B1.
Objective Data
-
Labs:
Laboratory Results
01/14/25 01/15/25 01/15/25
21:25 03:54 04:49
WBC 6.3
Hgb 11.3 L
Hct 32.4 L
Plt Count 227 D
HCO3 27.4
Sodium 135 136
Potassium 3.5 3.4 L
Chloride 101 102
Carbon Dioxide 29 27
BUN 4 L 5 L
Creatinine 0.6 L 0.6 L
Glucose 83 81
Calcium 8.4 8.4
Total Bilirubin 0.6 1.0
AST 40 33
ALT 29 26
Alkaline Phosphatase 26 L 25 L
Vital Signs:
Vital Signs
Temp Pulse Resp BP Pulse Ox
97.6 F 79 16 122/71 100
01/15/25 03:50 01/15/25 06:00 01/15/25 06:00 01/15/25 06:00 01/15/25 06:00
I&O
01/14/25 01/15/25 01/16/25
06:59 06:59 06:59
Intake Total 2473.7 / 2473.7
Output Total 1575 / 1575
Balance 898.7 / 898.7
Review of Systems
-
History Source: Patient and Other (Nurse who is taking care of the patient over night)
All other systems: Reviewed and negative
Physical Exam
-
General: Other (Patient on intubation)
Respiratory: Crackles (Right side lower lobe crackles present)
Cardiac: Regular Rhythm and S1/S2
GI: Soft and Nontender
Genito-urinary: No Costovertebral Tender
Musculoskeletal: No Clubbing and No Cyanosis
Skin: Warm
Neuro: Sedated and Other (Patient currently on ventilation. )
Hematologic / Lymphatic: No Lymphadenopathy
--- NOTE | 2025-01-15 07:47 | W.PN.NEPH.PH ---
Today's Communication / Plan
-
Recheck serum awesome to recalculate osmolar gap in setting of suspected ethylene glycol toxicity
No dialysis requirement today
Okay to continue lactated Ringer
Assessment/Plan
-
Impression:
Toxic ingestion of alcohol suspected gasoline in ethylene
History of hypertension
History of hypothyroid
Previous history of suicide
Vent dependent respiratory failure
Plan:
Status post dialysis last evening for suspected ethylene glycol toxicity
Levels pending
No need for repeat dialysis today, ethylene glycol level pending will recheck osmolar gap
Okay to continue lactated Ringer's IVFs
No evidence of renal GFR normal
No evidence of anion gap metabolic acidosis
Serum pH within normal limits per VBG
No evidence of endorgan damage
Patient intubated for airway protection in setting of altered mental status
Fomepizole provided for suspected ethylene glycol overdose
Initially Osmolar gap :> 70 unmeasured:454 - calculated ~380) strongly suggest the presence of unmeasured osmoles including ethylene glycol, henceforth due to neurological changes and likely strong presence of elevated levels of ethylene glycol I
will pursue dialysis this evening
Patient is critically ill with intubation in the setting of toxic ingestion of alcohol and suspected ethylene glycol and gasoline,remains on ventilator
Total Time Spent with Patient (in minutes): 31
-
-
Date of Service: January 15, 2025
CC / HPI / ROS
-
Chief Complaint:
Toxic ingestion
History of Present Illness:
Remains intubated but awake and interactive on the vent
Creatinine normal at 0.6
Hemodynamically stable
Review of Systems:
Nonoliguric via Shelley
Arousable on vent and interactive
No fevers
Labs
-
Labs:
WBC 6.3 10^3/uL (4.8-10.8) 01/15/25 04:49
RBC 3.20 10^6/uL (4.70-6.10) L 01/15/25 04:49
Hgb 11.3 g/dL (13.0-18.0) L 01/15/25 04:49
Hct 32.4 % (39.0-52.0) L 01/15/25 04:49
Plt Count 227 10^3/uL (130-400) D 01/15/25 04:49
Sodium 136 mmol/L (135-145) 01/15/25 04:49
Potassium 3.4 mmol/L (3.5-5.1) L 01/15/25 04:49
Chloride 102 mmol/L (98-107) 01/15/25 04:49
Carbon Dioxide 27 mmol/L (22-30) 01/15/25 04:49
BUN 5 mg/dl (9-20) L 01/15/25 04:49
Creatinine 0.6 mg/dL (0.7-1.3) L 01/15/25 04:49
eGFR > 60.00 01/15/25 04:49
Glucose 81 mg/dl (70-99) 01/15/25 04:49
Calcium 8.4 mg/dl (8.4-10.2) 01/15/25 04:49
Phosphorus 3.3 mg/dl (2.5-4.5) 01/15/25 04:49
Albumin 3.6 g/dl (3.5-5.0) 01/15/25 04:49
Physical Exam
-
Vital Signs:
Vital Signs
Temp Pulse Resp BP Pulse Ox
97.6 F 76 16 120/76 100
01/15/25 03:50 01/15/25 07:00 01/15/25 07:00 01/15/25 07:00 01/15/25 07:00
Cardiovascular:: Regular rate and rhythm
Respiratory:: Bilateral: CTA
Lung Excursion:: Normal
Abdomen:: Nontender
Bowel Sounds:: Normal
Extremity Edema:: None: Bilateral:
Shelley Catheter: Yes
Other Findings::
GEN': awake and alert on vent
HEENT: ET tube
[2025-01-15] MEDS: ATIVAN 2 MG IV (08:20)
[2025-01-15] MEDS: NSS (PRESERVATIVE FREE) 1 ML IV (08:21)
[2025-01-15] MEDS: FOLVITE 1 MG TUBE (08:25)
[2025-01-15] MEDS: PROTONIX IV 40 MG IV (08:26)
[2025-01-15] MEDS: NSS (PRESERVATIVE FREE) 10 ML IV (08:26)
[2025-01-15] MEDS: FOMEPIZOLE 100.84 MG IV (08:26)
[2025-01-15] MEDS: MIRALAX 17 GRAMS TUBE (08:26)
[2025-01-15] MEDS: VITAMIN B1 100 MG TUBE ×2 (08:27→20:56)
--- NOTE | 2025-01-15 09:37 | PTCARENOTE ---
Received pt this am, intubated sedated restrained with fentanyl,propofol, ivf and krider infusing as ordered. Pt easily awakens to voice. Nods appropriately and follows simple commands. He admits to daily alcohol use. He admits to depression by
nodding when asked. Admits to never seeking treatment. He nodded that he took antifreeze,etoh and gasoline yesterday. Currently denies any suicidal ideation. Pt admits to mild sob, denies cp, nausea, mild schilling. Noted to have nystagmus on exam and
tremors with activity/care. VSS. CHG given. Ativan given for tremors/nystagmus and sedation left as is currently. Otherwise please refer to work list.
--- NOTE | 2025-01-15 09:51 | CM ---
Addendum entered by Jillian Lundberg 01/15/25 10:10:
[facility]; patient is not currently able to participate in conversation. CM to contact [facility] for services when patient is able to participate.
Original Note:
Pt admitted after being found down in his car by his who reported prior suicide attempts and alcoholism. Suspected antifreeze and gasoline ingestion with intent on suicide.
Pt dialyzed urgently yesterday and currently intubated/ventilated in ICU.
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
Plan: CM will continue to follow to provide support to spouse and coordinate all discharge planning needs identified.
--- NOTE | 2025-01-15 10:13 | W.PN.INTV ---
Today's Communication / Plan
Recommendations
Continue sedation, intubation, mechanical ventilation with SAT/SBT today
Continue fomepizole while awaiting ethylene glycol level
Start phenobarbital taper, PRN lorazepam for alcohol withdrawal
Psychiatric consult when off sedation
Assessment
-
Assessment: Patient is a 64-year-old male with PMH of AUD, HTN, and depression who is being managed in the ICU for AMS and suspected (though unidentified) toxic ingestion this morning. Patient was sedated, intubated, and mechanically ventilated in
the ED for AMS. Labs showed elevated lactate, serum osmolality, serum osmolal gap (65.4) with alcohol correction, and alcohol levels (353) along with normal pH on VBG, though this was taken post intubation. UDS, carboxyhemoglobin, salicylates, and
acetaminophen unremarkable. CXR and CT head unremarkable. Hemodynamically stable on admission to ICU. Suspect TME 2/2 toxic ingestion.
01/15: Continues to be sedated, intubated, mechanically ventilated (currently 16/500/5/40%). Urgent HD completed yesterday evening. Lorazepam given for tremors with activity/care this morning. Per nursing, improving mentation this morning prior to
lorazepam administration. No signs of distress, satting well. Hemodynamically stable. Potassium repleted for K 3.4 this morning. Fomepizole regimen ongoing. Propofol drip, as needed lorazepam ongoing for sedation. Fentanyl drip ongoing for
pain control. IVF's given n.p.o. status. Serum osm 358 this morning, with osmolal gap 80. Improved from serum osm 454 and osmolal gap 161 yesterday. Lactate now 1.9 from 3.2 on presentation. ABG this morning shows mild metabolic alkalosis�pH
7.49, pCO2 36, HCO3 27.4, pO2 131. CPK WNL. Ethylene glycol level still pending. UA shows many bacteria, WBCs >100, + LE, + blood.
Plan:
#Suspected toxic ingestion
#Toxic metabolic encephalopathy
#Lactic acidosis
#Ventilator dependent respiratory failure
Currently sedated, intubated, mechanically ventilated
Wean sedation for SAT/SBT today as tolerated
S/p urgent HD yesterday evening; no further HD warranted at this time, per nephrology
Continue propofol, lorazepam as needed for sedation
Continue pain control with fentanyl
Continue fomepizole regimen until ethylene glycol <20, though level still pending
Continue IVF's (currently LR 120 mL/h) while patient is n.p.o.
Continue thiamine, folate
NGT in place for decompression
Kidney function stable with Cr 0.6, good UOP overnight (60 to 70 mL/h)
Trend BMP, CBC, serum osmolality, osmolal gap, blood gas, ethylene glycol
#Alcohol use disorder
#Suspected alcohol withdrawal
Patient tremulous this morning in setting of reported daily alcohol use
Start phenobarbital taper; continue lorazepam as needed
Continue thiamine, folate
# Abnormal urinalysis
UA 01/14: No WBCs, - LE, - nitrites, 1+ blood
UA 01/15: Many bacteria, WBCs >100, + LE, + blood; culture pending
Monitor CBC, temperature curve
#Depression
#Suspected suicide attempt
Psychiatry consult once off sedation, mechanical ventilation
Possible psychiatric hospitalization following acute medical management
#Anemia
Hb 11.3, decreased from 12.7 yesterday
Suspected dilutional, as patient has received >3 L of IVFs since presentation
Monitor CBC, clinical status
#Hypokalemia
K 3.4 this morning, subsequently repleted
Repeat BMP this afternoon
DVT PPx: Lovenox 40 mg SC daily
GI PPx: Pantoprazole 40 mg IV daily
Diet: Tube feeds
Subjective Dataa
Subjective Data
Date of Service:
Date of Service: January 15, 2025
Subjective:
Patient seen at the bedside on hospital bed #2. Patient is sedated, intubated, and mechanically ventilated. Somnolent but appears comfortable without signs of respiratory distress. Per nursing, patient was more awake and able to answer questions
by nodding earlier this morning. Per nursing, patient was also tremulous when moved in bed. Lorazepam subsequently given for tremors. Infusions in place: Propofol, fentanyl, LR, KCl, fomepizole. Vitals at the bedside: HR 85, BP 121/72, RR 16,
SpO2 100%.
Review of Systems
General: Unobtainable - Sedation
Objective Data
Data Reviewed
Vital Signs / I&O / Oxygen:
Vital Signs
Temp Pulse Resp BP Pulse Ox
98.9 F 76 16 120/76 100
01/15/25 08:01 01/15/25 07:00 01/15/25 07:00 01/15/25 07:00 01/15/25 08:00
Intake and Output
01/14/25 01/15/25 01/16/25
06:59 06:59 06:59
Intake Total 2473.7 / 2709.4 961.1 / 961.1
Output Total 1575 / 1575 125 / 125
Balance 898.7 / 1134.4 836.1 / 836.1
SaO2 [A/C] 100
SaO2 100
Nasal Cannula flow liters per 2
minute
Physical Exam
General: Comfortable
HEENT: Normocephalic and Anicteric
Cardiovascular: S1-S2, Regular Rhythm and Other (No M/R/G; no diaphoresis; no peripheral edema; pulses 2+ all extremities)
Respiratory: Clear, ET Tube (Mechanically ventilated (16/500/5/40%)) and Other (No wheezes, crackles, rhonchi; no signs of distress)
GI: Soft, Non Distended and NG Tube
Neurology: Other (Sedated)
Skin: Warm, Dry and Good Color
Labs/Micro/Reports
Lab Data
01/15/25 04:49
01/15/25 04:49
Laboratory Results
01/14/25 01/15/25
16:46 03:54
PT 13.7
INR 1.04
APTT 29.7
pH 7.49 H
pCO2 36
pO2 131 H
HCO3 27.4
O2 Delivery Level 50%
[2025-01-15] MEDS: PHENOBARBITAL 104 MG IV (12:22)
--- NOTE | 2025-01-15 12:36 | PTCARENOTE ---
Systems reviewed. Pt continues with tremors and lethargic but arousable since am ativan. As discussed in rounds, initiated phenobarb protocol for probable etoh withdrawal. Will wean sedation as able and initiate tube feedings when recs placed by
dietitian. Assessment unchanged otherwise
[2025-01-15] MEDS: TYLENOL ORAL SOLUTION 650 MG TUBE ×2 (13:43→21:19)
--- NOTE | 2025-01-15 13:52 | W.PN.UPDATE ---
Update Note
Progress Note Update
Initial ethylene glycol level came back 450
Osmolar gap still around 50
Will provide repeat dialysis again today
--- NOTE | 2025-01-15 14:20 | CM ---
Pt admitted after being found down in his car by his who reported prior suicide attempts and alcoholism. Suspected antifreeze (Ethylene Glycol) and gasoline ingestion with intent on suicide.
Pt dialyzed urgently yesterday and currently intubated/ventilated in ICU. Pt for dialysis again today due to high level of ethylene glycol.
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
Psych to be consulted when patient is able to participate in conversation.
Consult for [facility] ordered; patient is not currently able to participate in conversation. CM to contact [facility] for services when patient is able to participate.
[2025-01-15] MEDS: FOMEPIZOLE 100.86 MG IV (14:42)
[2025-01-15] MEDS: DIPRIVAN 100 IV (15:17)
[2025-01-15 15:26] LABS: Blood Urea Nitrogen 5 mg/dl (9-20); Calcium 8.4 mg/dl (8.4-10.2); Carbon Dioxide 25 mmol/L (22-30); Chloride 105 mmol/L (98-107); Estimated Creatinine Clearance > 125 ml/min; Glucose 101 mg/dl (70-99); Potassium 3.8 mmol/L (3.5-5.1); Sodium 134 mmol/L (135-145); eGFR > 60.00
--- NOTE | 2025-01-15 15:29 | W.PN.NEPH.HD ---
Assessment
-
Patient seen on dialysis
Systolic blood pressure stable
No UF
Dialysis for elevated ethylene glycol level with persistent osmolar gap
HD via temp catheter
Will reevaluate for dialysis tomorrow if required
Progress Note - Hemodialysis
-
Date of Service: January 15, 2025
Duration: 3 hours
Potassium Bath: 3
Calcium Bath: 2.5
Opti-Dialyzer: 160
Ultrafiltration: Other (None none)
Blood Flow: 300
Dialysate Flow: 600
Heparin: None
EPO: None
--- NOTE | 2025-01-15 15:30 | PTCARENOTE ---
Systems reviewed. Pt appears confused when awake. Resting when undisturbed. Easily reorients, nods appropriately and follows commands thumbs up and wiggle toes. Pt denies pain, nausea. Continues to deny suicidal ideation. Intermittent tremors
noted. Mostly R arm this afternoon when attempting to turn off propofol. Propofol resumed at lower dose, fentanyl decreased given no c/o pain at this time.
[2025-01-15] MEDS: MANNITOL 25% 12.5 GRAMS IV (15:44)
[2025-01-15] MEDS: HEPARIN 2200 UNITS INTRACATH (17:06)
[2025-01-15] MEDS: FOMEPIZOLE 100.43 MG IV (18:10)
[2025-01-15] MEDS: LOVENOX 40 MG SC (18:11)
--- NOTE | 2025-01-15 20:30 | PTCARENOTE ---
Pt's mentation tolertating vent settings satting at 100% pulse ox. Pt's mentation continues to improve. Pt able to follow commands and nods head appropriately to yes/no questions.
[2025-01-15] MEDS: PHENOBARBITAL 97.5 MG IV (20:58)
--- NOTE | 2025-01-15 21:45 | PTCARENOTE ---
PRN dose of tylenol administered by this RN via right nare NGT for fever of 100.7 axillary. Tube feeds initiated by this RN per order.
[2025-01-16] VITALS (26 sets, daily range): BP systolic 101–148; BP diastolic 66–86; BMI 26.8
[2025-01-16 03:55] LABS: Hematocrit 30.7 % (39.0-52.0); Hemoglobin 10.9 g/dL (13.0-18.0); Mean Corp Hgb Conc. 35.5 g/dL (33.0-37.0); Mean Corpuscular Volume 102.3 fL (80.0-94.0); Platelet Count 187 10^3/uL (130-400); Red Cell Dist. Width 13.2 % (11.5-14.5)
[2025-01-16 04:06] LABS: Magnesium 1.7 mg/dl (1.6-2.3)
[2025-01-16] MEDS: LR 1000 IV (04:59)
[2025-01-16] MEDS: FOMEPIZOLE 101.29 MG IV ×2 (05:03→17:29)
[2025-01-16 05:21] LABS: Blood Urea Nitrogen 7 mg/dl (9-20); Calcium 8.4 mg/dl (8.4-10.2); Carbon Dioxide 23 mmol/L (22-30); Chloride 104 mmol/L (98-107); Estimated Creatinine Clearance > 125 ml/min; Glucose 103 mg/dl (70-99); Potassium 3.5 mmol/L (3.5-5.1); Sodium 132 mmol/L (135-145); eGFR > 60.00
[2025-01-16 05:26] LABS: B.E. 1.5 mmol/L; HCO3 24.2 mmol/L (21-28); O2 Saturation % 98.7 % (94-98); PCO2 31 mmHg (35-48); PO2 88 mmHg (83-108)
[2025-01-16] MEDS: NSS (PRESERVATIVE FREE) 1 ML IV (05:59)
[2025-01-16] MEDS: ATIVAN 2 MG IV (05:59)
[2025-01-16] MEDS: KCL 270 MEQ IV (06:25)
[2025-01-16] MEDS: MAGNESIUM SULFATE 102 GRAMS IV (06:25)
--- NOTE | 2025-01-16 06:30 | PTCARENOTE ---
PRN ativan administered by this RN due to pt exhibiting tremors and increased restlessness.
--- NOTE | 2025-01-16 07:10 | PTCARENOTE ---
Received patient on the ventilator, RASS -1, arousable to voice, can follow simple commands, on Propofol and Fentanyl Drips, on B/L wrist restraints, NSR with 1st AVB, BP WNL, ET tube size 8.0 @26cm Lip, [place] [address]/40%/+5, Left Nare NGT @65cm
infusing Jevity 1.5 @20cc/hr with water flush @25cc/hr, Shelley in place draining yellow urine.
--- NOTE | 2025-01-16 07:14 | W.PN.HOSP.TC ---
Today's Communication/Plan
-
Wean off ventilator
Psychiatry
Incentive spirometry
CBC, CMP
Assessment / Plan
Assessment / Plan
64 yr old male with k/h/o hypertension, hypothyroidism, chronic alcohol intake for the past 1 year admitted to the ER with incoherent state due to ethylene glycol ingestion, required intubation at the ED.
Vitals: BP 120/76, NE 79, sat O2 100 with FiO2 40, RR 16, tidal volume 500, PEEP 5 with a peak airway pressure 7.
He is on sedation with propofol, followed by today fentanyl administered at morning.
I/O 3434/1700, NG tube in place administered vitamin B1.
On examination: Lungs right lower lobe mild crackles present, heart rate rhythm normal, no abdominal tenderness.
# Antifreeze ingestion-ethylene glycol/methanol:
NG tube in place.
Vitals 117/70, 85 bpm, saturation 100, RR 16,
I/O +2949 mL, urine Shelely's drained 150ml
Currently on Ringer lactate, he followed commands hide mild tremor may be due to alcohol withdrawal.
Labs: WBC 6.8, hemoglobin 11.3--10.9 low, sodium 134-132 low, potassium 3.5 currently receiving potassium chloride IV rider, magnesium 1.7, IV compost balance nutrition 20 mL/h
Initial ethylene glycol 450,
On examination: Lungs right-sided crackles, left side lower lobe crackles present the patient currently on aspiration precautions.
Serum Osmo 454 high at the time of admission-358(after hemodialysis)--328 high
PT 13.7 , INR 1.04, APTT 29.7 WNL
Triglycerides 70--74
At the time of admission lactic acid 3.2 high--1.9 normal
Urinalysis negative for UTI
Carboxyhemoglobin 2.9
Toxicology positive for fentanyl, benzodiazepines.
Hepatitis panel negative includes HBs antibody.
Chest x-ray 01/16:
Lines and tubes: The tip of endotracheal tube is approximately 5 cm above the felicita. The tip of the right internal jugular central venous catheter is in the region of the lower third of the superior vena cava. The tip of the feeding tube is off the
edge of the film but below the level of the GE junction
Lungs: The lungs are clear. No pleural effusion or pneumothorax.
Chest x-ray 01/15:
Mild opacity in the basilar segments of the lower lobes of both lungs which appears unchanged. Diagnostic possibilities are (1) subsegmental atelectasis/scarring or (2) mild aspiration pneumonia.
2. Mildly decreased bilateral lung volumes.
3. Endotracheal tube, nasogastric tube, and right IJ central venous catheter in place.
Head CT 01/14: No evidence of acute intracranial abnormality
Vascular ultrasound 01/14: unremarkable placement of nontunneled right internal jugular hemodialysis catheter. Chest radiograph ordered to confirm catheter positioning prior to use.
Abdominal x-ray 01/14:
The tip of the feeding tube is in the region of the gastric body. The tip of a central venous catheter is the region of the middle third of the superior vena cava.
Bowel: There is a nonobstructive bowel gas pattern.
No evidence of endorgan damage creatinine 0.6, GFR> 60 within normal limit
Feather Stitcher recommended for hemodialysis for today after checking osmolar gap, ethylene glycol.
Initially Osmolar gap :> 70 unmeasured:454 - calculated ~380) strongly suggest the presence of unmeasured osmoles including ethylene glycol, henceforth due to neurological changes and likely strong presence of elevated levels of ethylene glycol will
pursue dialysis this evening.
Currently the patient is receiving Ringer lactate.
Monitor CBC, CMP
Repeat triglycerides because currently the patient is on propofol.
# Alcohol usage disorder:
His last drink yesterday
Alcohol level was 353
Calculated MSAS protocol once he becomes conscious.
Alcohol, beta hydroxybutyrate screening results are pending.
# gasoline ingestion:
currently on scd due to bleeding risk,
iv ppi prophylaxis include Protonix 40 mg IV started,
#Suicidal attempt psychiatrist consultation in future
# Hypothyroidism:
TSH monitoring
Continue levothyroxine
plan:
wean off the ventilation
incentive spirometer
continue iv ppi
psychiatrist consult
pt, ot consult
Code: Full
Disposition: Home
Diet: N.p.o. currently on IVF
DVT: Lovenox
Anticipated Discharge: 24 - 48 hours
Subjective/Interval History
-
Date of Service: January 16, 2025
Overnight patient was mildly agitated Ativan IV was given.
Around 7:30 AM when I see the patient: on ventilation with a setting of RR 16/tidal 540/FiO2 40%/PEEP 5, He is currently receiving phenobarbital, propofol, fentanyl,
Objective Data
-
Labs:
Laboratory Results
01/16/25 01/16/25
03:24 05:15
WBC 6.8
Hgb 10.9 L
Hct 30.7 L
Plt Count 187
HCO3 24.2
Sodium 132 L
Potassium 3.5
Chloride 104
Carbon Dioxide 23
BUN 7 L
Creatinine 0.6 L
Glucose 103 H
Calcium 8.4
Vital Signs:
Vital Signs
Temp Pulse Resp BP Pulse Ox
99.8 F 88 17 130/78 100
01/16/25 04:16 01/16/25 06:00 01/16/25 06:00 01/16/25 06:00 01/16/25 06:00
I&O
01/15/25 01/16/25 01/17/25
06:59 06:59 06:59
Intake Total 2473.7 / 2709.5 4419.2 / 4419.2
Output Total 1575 / 1575 1470 / 1470
Balance 898.7 / 1134.5 2949.2 / 2949.2
Review of Systems
-
History Source: Patient
All other systems: Reviewed and negative
Physical Exam
-
General: Well Developed
HEENT: Oxygen and Other
GI: Soft
Genito-urinary: No Costovertebral Tender
Musculoskeletal: No Clubbing, No Cyanosis and No Edema
Neuro: AO x 3
Hematologic / Lymphatic: No Lymphadenopathy
Psych: Calm
[2025-01-16] MEDS: PHENOBARBITAL 97.5 MG IV ×3 (08:28→21:07)
[2025-01-16] MEDS: FOLVITE 1 MG TUBE (08:30)
[2025-01-16] MEDS: VITAMIN B1 100 MG TUBE ×2 (08:30→21:07)
[2025-01-16] MEDS: MIRALAX 17 GRAMS TUBE (08:30)
[2025-01-16] MEDS: PROTONIX IV 40 MG IV (08:30)
[2025-01-16] MEDS: NSS (PRESERVATIVE FREE) 10 ML IV (08:30)
--- NOTE | 2025-01-16 09:00 | W.PN.INTV ---
Today's Communication / Plan
Recommendations
Propofol, fentanyl drips turned off this morning
Plan for SAT/SBT today
Defer to nephrology for further HD
Ethylene glycol level trending downward, continue to monitor
Continue fomepizole until ethylene glycol <20
Continue phenobarbital taper for alcohol withdrawal
Assessment
-
Assessment: Patient is a 64-year-old male with PMH of AUD, HTN, and depression who is being managed in the ICU for AMS and suspected (though unidentified) toxic ingestion this morning. Patient was sedated, intubated, and mechanically ventilated in
the ED for AMS. Labs showed elevated lactate, serum osmolality, serum osmolal gap (65.4) with alcohol correction, and alcohol levels (353) along with normal pH on VBG, though this was taken post intubation. UDS, carboxyhemoglobin, salicylates, and
acetaminophen unremarkable. CXR and CT head unremarkable. Hemodynamically stable on admission to ICU. Suspect TME 2/2 toxic ingestion.
01/15: Continues to be sedated, intubated, mechanically ventilated (currently 16/500/5/40%). Urgent HD completed yesterday evening. Lorazepam given for tremors with activity/care this morning. Per nursing, improving mentation this morning prior to
lorazepam administration. No signs of distress, satting well. Hemodynamically stable. Potassium repleted for K 3.4 this morning. Fomepizole regimen ongoing. Propofol drip, as needed lorazepam ongoing for sedation. Fentanyl drip ongoing for
pain control. IVF's given n.p.o. status. Serum osm 358 this morning, with osmolal gap 80. Improved from serum osm 454 and osmolal gap 161 yesterday. Lactate now 1.9 from 3.2 on presentation. ABG this morning shows mild metabolic alkalosis�pH
7.49, pCO2 36, HCO3 27.4, pO2 131. CPK WNL. Ethylene glycol level still pending. UA shows many bacteria, WBCs >100, + LE, + blood.
01/16: Continues to be intubated and mechanically ventilated (currently 16/550/5/40%). Second HD session completed yesterday evening. Lorazepam 2 mg given for tremors, restlessness this morning. Mag and K repleted. Febrile to 101.4 at noon
yesterday and again to 100.7 overnight. Ethylene glycol still markedly elevated but trending downward, as follows: 460 (01/14 @ 1400), 198 (01/15 @ 0449), 123 (01/15 @ 1427). Serum osmolality normalized to 284 this morning, with osmolal gap now
essentially normal at 12 (trend 161 -> 82 -> 12). ABG this morning shows mild respiratory alkalosis (pH 7.5, pCO2 31, HCO3 24.2, pO2 88). Urine culture shows GBS, though inconsistent prior UAs do not show a clear UTI picture.
Plan:
#Suspected toxic ingestion
#Toxic metabolic encephalopathy
#Lactic acidosis
#Ventilator dependent respiratory failure
Currently intubated and mechanically ventilated
Given mild respiratory alkalosis will adjust vent settings to the followin/450/5/40%
Propofol, fentanyl stopped this morning; SAT/SBT today as tolerated
S/p urgent HD x 2 (evenings of 01/14, 01/15); defer to nephrology for additional HD
Lorazepam as needed for agitation
Continue fomepizole regimen until ethylene glycol <20 (most recent level 123, which was collected 01/15 @ 1427)
Discontinue IVFs, as patient is receiving tube feeds and is hemodynamically stable, +4.5 L, and trace peripheral edema noted
Continue thiamine, folate
NGT in place for decompression
Kidney function stable with Cr 0.6, adequate UOP overnight (per nursing, 50 mL/h)
Serum osmolality, osmolal gap normalized
Trend BMP, CBC, blood gas, ethylene glycol
#Alcohol use disorder
#Suspected alcohol withdrawal
Patient tremulous, restless this morning, requiring lorazepam
Continue phenobarbital taper; continue lorazepam as needed
Continue thiamine, folate
# Abnormal urinalysis
UA 01/14: No WBCs, - LE, - nitrites, 1+ blood
UA 01/15: Many bacteria, WBCs >100, + LE, + blood; culture shows GBS
Hold off on antibiotics for now
Monitor CBC, temperature curve
#Depression
#Suspected suicide attempt
Psychiatry consult once off sedation, mechanical ventilation
Possible psychiatric hospitalization following acute medical management
#Anemia
Hb 10.9, mildly decreased from 11.3 yesterday
Suspected dilutional, as patient has received >6 L of IVFs since presentation
Monitor CBC, clinical status
#Hypokalemia
K 3.5 this morning, subsequently repleted
Repeat BMP this afternoon
DVT PPx: Lovenox 40 mg SC daily
GI PPx: Pantoprazole 40 mg IV daily
Diet: Tube feeds
Subjective Dataa
Subjective Data
Date of Service:
Date of Service: January 16, 2025
Subjective:
Patient seen at bedside on hospital day #3. Patient continues to be intubated mechanically ventilated, that he is awake and able to nod to answer questions. Denies any pain. Propofol and fentanyl drips were turned off this morning. Mag and
potassium repleted this morning. LR running at 120 mL/h. Per nursing, patient had tremors and was restless this morning, requiring lorazepam 2 mg. Low-grade fever 100.7 overnight, with acetaminophen 650 mg subsequently given.
Review of Systems
General: Other (Denies pain)
Cardiopulmonary: Other (Denies chest pain)
GI: Other (Denies abdominal pain)
Objective Data
Data Reviewed
Vital Signs / I&O / Oxygen:
Vital Signs
Temp Pulse Resp BP Pulse Ox
97.6 F 88 17 130/78 100
01/16/25 07:25 01/16/25 06:00 01/16/25 06:00 01/16/25 06:00 01/16/25 06:00
Intake and Output
01/15/25 01/16/25 01/17/25
06:59 06:59 06:59
Intake Total 2473.7 / 2709.5 4419.2 / 4419.2
Output Total 1575 / 1575 1470 / 1470
Balance 898.7 / 1134.5 2949.2 / 2949.2
SaO2 [A/C] 100
SaO2 100
Nasal Cannula flow liters per 2
minute
Physical Exam
General: Comfortable and T Max (100.7 overnight; 101.4 noon yesterday)
HEENT: Normocephalic and Anicteric
Cardiovascular: S1-S2, Regular Rhythm and Other (No M/R/G; no diaphoresis; trace peripheral edema; pulses 2+ all extremities)
Respiratory: Clear, ET Tube (Mechanically ventilated (16/550/5/40%)) and Other (No wheezes, crackles, rhonchi; no signs of distress)
GI: Soft, Non Distended, Non Tender and NG Tube
Neurology: Awake and Other (Sedation turned off this morning just prior to exam)
Skin: Warm, Dry and Good Color
Labs/Micro/Reports
Lab Data
01/16/25 03:24
01/16/25 03:24
Laboratory Results
01/16/25
05:15
pH 7.50 H
pCO2 31 L
pO2 88
HCO3 24.2
O2 Delivery Level
--- NOTE | 2025-01-16 10:17 | CM ---
Chart reviewed and consult received
Spoke with Bernadette [phone]
[facility] number given
Contacted [facility]
--- NOTE | 2025-01-16 11:44 | W.PN.NEPH.PH ---
Today's Communication / Plan
-
follow Ethylene glycol level
likely no need of further HD
Assessment/Plan
-
Impression:
Toxic ingestion of alcohol suspected gasoline in ethylene
History of hypertension
History of hypothyroid
Previous history of suicide
Vent dependent respiratory failure
Plan:
Status post dialysis on 01/14 and 01/15 for high osmolar gap and Ethylene glycol level
today osmolar gap is only 11, await ethylele glycol level from today
likely no further dialysis is indicated
S osmo also normalized, cont Fomepizole per ICU
No evidence of endorgan damage
mild hyponatremia, monitor on TF , decrease FWF to 5cc/hr
Patient intubated for airway protection in setting of altered mental status-likely wean and extubate today
BP stable, now off IVF
d/w nursing
-
-
Date of Service: January 16, 2025
CC / HPI / ROS
-
Chief Complaint:
Toxic ingestion
History of Present Illness:
Remains intubated but awake and interactive on the vent
Creatinine normal at 0.6
Hemodynamically stable
alkalemia from primary resp alkalosis
Review of Systems:
Nonoliguric via Shelley
Arousable on vent and interactive
No fevers
Labs
-
Labs:
WBC 6.8 10^3/uL (4.8-10.8) 01/16/25 03:24
RBC 3.00 10^6/uL (4.70-6.10) L 01/16/25 03:24
Hgb 10.9 g/dL (13.0-18.0) L 01/16/25 03:24
Hct 30.7 % (39.0-52.0) L 01/16/25 03:24
Plt Count 187 10^3/uL (130-400) 01/16/25 03:24
Sodium 132 mmol/L (135-145) L 01/16/25 03:24
Potassium 3.5 mmol/L (3.5-5.1) 01/16/25 03:24
Chloride 104 mmol/L (98-107) 01/16/25 03:24
Carbon Dioxide 23 mmol/L (22-30) 01/16/25 03:24
BUN 7 mg/dl (9-20) L 01/16/25 03:24
Creatinine 0.6 mg/dL (0.7-1.3) L 01/16/25 03:24
eGFR > 60.00 01/16/25 03:24
Glucose 103 mg/dl (70-99) H 01/16/25 03:24
Calcium 8.4 mg/dl (8.4-10.2) 01/16/25 03:24
Phosphorus 2.9 mg/dl (2.5-4.5) 01/16/25 03:24
Albumin 3.6 g/dl (3.5-5.0) 01/15/25 04:49
Physical Exam
-
Vital Signs:
Vital Signs
Temp Pulse Resp BP Pulse Ox
99.3 F 83 6 130/78 100
01/16/25 11:33 01/16/25 11:10 01/16/25 11:10 01/16/25 06:00 01/16/25 11:15
Cardiovascular:: Regular rate and rhythm
Respiratory:: Bilateral: CTA
Lung Excursion:: Normal
Abdomen:: Nontender
Bowel Sounds:: Normal
Extremity Edema:: None: Bilateral:
Shelley Catheter: Yes
Other Findings::
GEN': awake and alert on vent
HEENT: ET tube
--- NOTE | 2025-01-16 12:00 | PTCARENOTE ---
Reassessed the patient, Propofol and Fentanyl drips were off in the morning. Tried SBT in the morning, patient went apnea and failed.
During rounds, Team would like patient to stay off Propofol and Fentanyl drips. Nursing can try PRNs to mange pain/anxiety/withdraw symptoms if needed.
--- NOTE | 2025-01-16 14:00 | CHAP ---
Addendum entered by Deborah Rodríguez 01/17/25 09:02:
This pastoral care was actually done on January 14.
Original Note:
Fr. Roderick Singh of [facility] in [place], the patient's [place], came and anointed Juice and gave him Last Rites. Exact time uncertain.
[2025-01-16] MEDS: TYLENOL ORAL SOLUTION 650 MG TUBE (15:08)
--- NOTE | 2025-01-16 15:59 | PTCARENOTE ---
Reassessed the patient, RASS -1, arousable to voice but falling back sleep shortly after, no continuous sedation drips, tried SBT again in the afternoon, went apnea. Weaning again tmr.
Spiked a fever at 101.5F, PRN Tylenol and Ice pack given.
[2025-01-16] MEDS: LOVENOX 40 MG SC (17:29)
--- NOTE | 2025-01-16 21:00 | PTCARENOTE ---
Resumed care of pt this evening. Received pt intubated on the ventilator. Pt tolerating vent settings satting at 99% pulse ox. Pt suctioned for small amount of snow colored secretions. Pt follows commands and continues to nod head appropriately.
[2025-01-17] VITALS (27 sets, daily range): BP systolic 111–147; BP diastolic 64–97; PULSE 75; O2SAT 95; BMI 26.9
--- NOTE | 2025-01-17 00:30 | PTCARENOTE ---
Pt resting comfortably at this time.
[2025-01-17 05:05] LABS: B.E. 0 mmol/L; HCO3 23.8 mmol/L (21-28); O2 Saturation % 99.7 % (94-98); PCO2 35 mmHg (35-48); PO2 124 mmHg (83-108)
[2025-01-17] MEDS: FOMEPIZOLE 101.29 MG IV ×2 (05:16→17:53)
[2025-01-17 05:31] LABS: Hematocrit 32.3 % (39.0-52.0); Hemoglobin 11.0 g/dL (13.0-18.0); Mean Corp Hgb Conc. 34.1 g/dL (33.0-37.0); Mean Corpuscular Volume 103.5 fL (80.0-94.0); Platelet Count 150 10^3/uL (130-400); Red Cell Dist. Width 13.0 % (11.5-14.5)
[2025-01-17 05:57] LABS: ALT (SGPT) 17 U/L (0-50); AST (SGOT) 22 U/L (17-59); Albumin 3.1 g/dl (3.5-5.0); Alkaline Phosphatase 21 U/L (38-126); Blood Urea Nitrogen 8 mg/dl (9-20); Calcium 8.0 mg/dl (8.4-10.2); Carbon Dioxide 24 mmol/L (22-30); Chloride 101 mmol/L (98-107); Estimated Creatinine Clearance > 125 ml/min; Glucose 136 mg/dl (70-99); Magnesium 1.9 mg/dl (1.6-2.3); Potassium 3.7 mmol/L (3.5-5.1); Sodium 130 mmol/L (135-145); Total Protein 5.5 g/dl (6.3-8.2); Triglycerides 58 mg/dl (10-149); eGFR > 60.00
--- NOTE | 2025-01-17 06:20 | PTCARENOTE ---
K rider and mag rider infusing via peripheral IV site per order.
[2025-01-17] MEDS: MAGNESIUM SULFATE 102 GRAMS IV (06:34)
[2025-01-17] MEDS: KCL 260 MEQ IV (06:34)
--- NOTE | 2025-01-17 07:09 | W.PN.HOSP.TC ---
Today's Communication/Plan
-
weaned off from the ventilation
incentive spirometer
continue iv ppi
pt, ot consult
down grade from ICU if the patient is stable.
psychiatrist consulted 1:1 by given suicidal attempt history
swallow study in future if the patient has dysphagia
safe tray along with diet order.
unasyn- ampicillin/ sulbactam 3 g iv for complicated urinary tract infection.
Assessment / Plan
Assessment / Plan
64 yr old male with k/h/o hypertension, hypothyroidism, chronic alcohol intake for the past 1 year admitted to the ER with incoherent state due to ethylene glycol ingestion, required intubation at the ED.
Vitals: BP 120/76, TN 79, sat O2 100 with FiO2 40, RR 16, tidal volume 500, PEEP 5 with a peak airway pressure 7.
He is on sedation with propofol, followed by today fentanyl administered at morning.
I/O 3434/1700, NG tube in place administered vitamin B1.
On examination: Lungs right lower lobe mild crackles present, heart rate rhythm normal, no abdominal tenderness.
# Complicated urinary tract infection on Shelley's catheter with blood culture strep agalactiae positive:
Currently he has no allergy history,
Complicated UTI --on Shelley's catheters will continue for 10 days IV Unasyn 3 g 8 hourly
Low urine output may be secondary to hemodialysis.
# Antifreeze ingestion-ethylene glycol/methanol:
NG tube in place.
Vitals 117/70, 85 bpm, saturation 100, RR 16,
I/O +2949 mL, urine Shelley's drained 150ml
Currently on Ringer lactate, he followed commands hide mild tremor may be due to alcohol withdrawal.
Labs: WBC 6.8, hemoglobin 11.3--10.9 low, sodium 134-132 low, potassium 3.5 currently receiving potassium chloride IV rider, magnesium 1.7, IV compost balance nutrition 20 mL/h
Initial ethylene glycol 450-- 420-- ,43.20 yesterday ( if its less than 20 mg/dl then hold fomepizole), no need for further hemodialysis.
Currently on normal saline, acetaminophen 650 mg, enoxaparin, folic acid 1 mg, potassium chloride to 60 mL, magnesium 1 to 2 mL, phenobarbital 97.5 mg, thiamine.
On examination: Lungs right-sided crackles, left side lower lobe crackles present the patient currently on aspiration precautions.
Serum Osmo 454 high at the time of admission-358(after hemodialysis)--328 high
PT 13.7 , INR 1.04, APTT 29.7 WNL
Triglycerides 70--74
At the time of admission lactic acid 3.2 high--1.9 normal
Urinalysis negative for UTI
Carboxyhemoglobin 2.9
Toxicology positive for fentanyl, benzodiazepines.
Hepatitis panel negative includes HBs antibody.
Chest x-ray 01/16:
Lines and tubes: The tip of endotracheal tube is approximately 5 cm above the felicita. The tip of the right internal jugular central venous catheter is in the region of the lower third of the superior vena cava. The tip of the feeding tube is off the
edge of the film but below the level of the GE junction
Lungs: The lungs are clear. No pleural effusion or pneumothorax.
Chest x-ray 01/15:
Mild opacity in the basilar segments of the lower lobes of both lungs which appears unchanged. Diagnostic possibilities are (1) subsegmental atelectasis/scarring or (2) mild aspiration pneumonia.
2. Mildly decreased bilateral lung volumes.
3. Endotracheal tube, nasogastric tube, and right IJ central venous catheter in place.
Head CT 01/14: No evidence of acute intracranial abnormality
Vascular ultrasound 01/14: unremarkable placement of nontunneled right internal jugular hemodialysis catheter. Chest radiograph ordered to confirm catheter positioning prior to use.
Abdominal x-ray 01/14:
The tip of the feeding tube is in the region of the gastric body. The tip of a central venous catheter is the region of the middle third of the superior vena cava.
Bowel: There is a nonobstructive bowel gas pattern.
No evidence of endorgan damage creatinine 0.6, GFR> 60 within normal limit
Appeals Assistant recommended for hemodialysis for today after checking osmolar gap, ethylene glycol.
Initially Osmolar gap :> 70 unmeasured:454 - calculated ~380) strongly suggest the presence of unmeasured osmoles including ethylene glycol, henceforth due to neurological changes and likely strong presence of elevated levels of ethylene glycol will
pursue dialysis this evening.
Currently the patient is receiving Ringer lactate.
Monitor CBC, CMP
Repeat triglycerides because currently the patient is on propofol.
# Alcohol usage disorder:
His last drink yesterday
Alcohol level was 353
Calculated MSAS protocol once he becomes conscious.
Alcohol, beta hydroxybutyrate screening results are pending.
# gasoline ingestion:
currently on scd due to bleeding risk,
iv ppi prophylaxis include Protonix 40 mg IV started,
#Suicidal attempt psychiatrist consultation in future
# Hypothyroidism:
TSH monitoring
Continue levothyroxine
plan:
weaned off from the ventilation
incentive spirometer
continue iv ppi
psychiatrist consult
pt, ot consult
down grade from ICU if the patient is stable.
psychiatrist consulted 1:1
swallow study
safe tray depending on his tolerance
unasyn- ampicillin/ sulbactam 3 g iv.
Code: Full
Disposition: Home
Diet: N.p.o. currently on IVF
DVT: Lovenox
Anticipated Discharge: > 48 hours
Subjective/Interval History
-
Date of Service: January 17, 2025
Overnight the patient was oriented and trying to wean off from the ventilation. Discontinued Fentanyl, propofol and currently he is receiving phenobarbital for his agitation due to alcohol withdrawal with MSAS score 2.
Today morning the patient was responding for all my questions. He was nodding 'yes' for pain following questions he said 'no' for chest pain, neck pain, headache, abdominal pain, difficulty in urinating, leg, joint pains, throat pain.
History obtained from the nurse, patient is responding well however they noted down mucus discharge from his NG tube, decreased urine output I/O- 702/50.
Increased in weight from 86.1--89.4--89.9.
around 7.30 AM:
Vitals: Temp 100.8 today morning, TN 78, BP 131/97, HR 78, RR 16--10--7--7(PEEP 5, 40% FiO2, and currently on form a trial weaning off from ventilation)
Chest x-ray 01/17 : low lung volumes with minimal bibasilar opacities, likely atelectasis.
WBC 8.7, hemoglobin 10.9--11 low,
Sodium 132--130, bun 8 low, creatinine 0.6 low, glucose 136 high, calcium 8.4--8 low, magnesium 1.9 normal
Urine culture 01/15--positive for Streptococcus agalactiae.
Objective Data
-
Labs:
Laboratory Results
01/17/25 01/17/25
04:53 05:10
WBC 8.7
Hgb 11.0 L
Hct 32.3 L
Plt Count 150
HCO3 23.8
Sodium 130 L
Potassium 3.7
Chloride 101
Carbon Dioxide 24
BUN 8 L
Creatinine 0.6 L
Glucose 136 H
Calcium 8.0 L
Total Bilirubin 0.6
AST 22
ALT 17
Alkaline Phosphatase 21 L
Vital Signs:
Vital Signs
Temp Pulse Resp BP Pulse Ox
100.3 F 79 16 118/75 99
01/17/25 05:47 01/17/25 06:00 01/17/25 06:00 01/17/25 06:00 01/17/25 06:00
I&O
01/16/25 01/17/25 01/18/25
06:59 06:59 06:59
Intake Total 4419.2 / 4661.9 2102.7 / 2102.7
Output Total 1470 / 1520 1026 / 1026
Balance 2949.2 / 3141.9 1076.7 / 1076.7
Review of Systems
-
History Source: Patient and Other (nurse. )
All other systems: Reviewed and negative
Physical Exam
-
General: Pain
Cardiac: Regular Rhythm and S1/S2
GI: Soft, Nontender and Nondistended
Genito-urinary: No Costovertebral Tender
Musculoskeletal: No Clubbing and Other (SCD at lower lung)
Skin: Warm
Neuro: Other (Currently on intubation however the patient is oriented and alert responding for the questions.)
Hematologic / Lymphatic: No Lymphadenopathy
Psych: Calm
[2025-01-17] MEDS: PROTONIX IV 40 MG IV (07:26)
[2025-01-17] MEDS: NSS (PRESERVATIVE FREE) 10 ML IV (07:26)
[2025-01-17] MEDS: MIRALAX 17 GRAMS TUBE (07:26)
[2025-01-17] MEDS: FOLVITE 1 MG TUBE (07:26)
[2025-01-17] MEDS: VITAMIN B1 100 MG TUBE ×2 (07:27→21:35)
[2025-01-17] MEDS: PHENOBARBITAL 97.5 MG IV (07:27)
[2025-01-17] MEDS: TYLENOL ORAL SOLUTION 650 MG TUBE (08:36)
[2025-01-17 09:40] LABS: B.E. -0.1 mmol/L; HCO3 23.9 mmol/L (21-28); O2 Saturation % 99.9 % (94-98); PCO2 36 mmHg (35-48); PO2 129 mmHg (83-108)
--- NOTE | 2025-01-17 09:57 | W.PN.INTV ---
Today's Communication / Plan
Recommendations
Extubated this morning, doing well
Continue phenobarbital taper for alcohol withdrawal
Continue fomepizole, monitor ethylene glycol level
Furosemide once for suspected hypervolemic hyponatremia
Psychiatry consulted
Assessment
-
Assessment: Patient is a 64-year-old male with PMH of AUD, HTN, and depression who is being managed in the ICU for AMS and suspected (though unidentified) toxic ingestion this morning. Patient was sedated, intubated, and mechanically ventilated in
the ED for AMS. Labs showed elevated lactate, serum osmolality, serum osmolal gap (65.4) with alcohol correction, and alcohol levels (353) along with normal pH on VBG, though this was taken post intubation. UDS, carboxyhemoglobin, salicylates, and
acetaminophen unremarkable. CXR and CT head unremarkable. Hemodynamically stable on admission to ICU. Suspect TME 2/2 toxic ingestion.
01/15: Continues to be sedated, intubated, mechanically ventilated (currently 16/500/5/40%). Urgent HD completed yesterday evening. Lorazepam given for tremors with activity/care this morning. Per nursing, improving mentation this morning prior to
lorazepam administration. No signs of distress, satting well. Hemodynamically stable. Potassium repleted for K 3.4 this morning. Fomepizole regimen ongoing. Propofol drip, as needed lorazepam ongoing for sedation. Fentanyl drip ongoing for
pain control. IVF's given n.p.o. status. Serum osm 358 this morning, with osmolal gap 80. Improved from serum osm 454 and osmolal gap 161 yesterday. Lactate now 1.9 from 3.2 on presentation. ABG this morning shows mild metabolic alkalosis�pH
7.49, pCO2 36, HCO3 27.4, pO2 131. CPK WNL. Ethylene glycol level still pending. UA shows many bacteria, WBCs >100, + LE, + blood.
01/16: Continues to be intubated and mechanically ventilated (currently 16/550/5/40%). Second HD session completed yesterday evening. Lorazepam 2 mg given for tremors, restlessness this morning. Mag and K repleted. Febrile to 101.4 at noon
yesterday and again to 100.7 overnight. Ethylene glycol still markedly elevated but trending downward, as follows: 460 (01/14 @ 1400), 198 (01/15 @ 0449), 123 (01/15 @ 1427). Serum osmolality normalized to 284 this morning, with osmolal gap now
essentially normal at 12 (trend 161 -> 82 -> 12). ABG this morning shows mild respiratory alkalosis (pH 7.5, pCO2 31, HCO3 24.2, pO2 88). Urine culture shows GBS, though inconsistent prior UAs do not show a clear UTI picture.
01/17: Extubated successfully this morning following SBT with reassuring blood gas. No agitation, restlessness, or tremors overnight or this morning. Magnesium and K repleted. Febrile to 100.8. No leukocytosis. Sputum sample taken this morning.
Ethylene glycol improving to 43, which has been incrementally decreasing from initial 460 on 01/14 prior to HD x 2 01/14 and 01/15. Serum osm 278 and osmolal gap 8 both normal this morning. UOP low at ~30 mL/h overnight. Mild peripheral edema
noted. Sodium 130, suspected 2/2 hypervolemia.
Plan:
#Suspected toxic ingestion
#Toxic metabolic encephalopathy
#Lactic acidosis
#Ventilator dependent respiratory failure
Successfully extubated this morning following SBT and reassuring blood gas
S/p urgent HD x 2 (evenings of 01/14, 01/15); defer to nephrology for additional HD
Lorazepam as needed for agitation
Continue fomepizole regimen until ethylene glycol <20 (most recent level 43, which was collected 01/16 @ 0324)
Continue thiamine, folate
NGT removed this morning
Kidney function stable with Cr 0.6, though low UOP at 30 mL/h
Serum osmolality, osmolal gap normal this morning
Trend BMP, CBC, ethylene glycol
#Alcohol use disorder
#Alcohol withdrawal
#Fever
No signs of alcohol withdrawal overnight or this morning; off sedation since yesterday morning
Continue phenobarbital taper; continue lorazepam as needed for agitation
Continue thiamine, folate
Suspect fever 2/2 alcohol withdrawal
#Hyponatremia
Suspect hypervolemic hyponatremia, as patient is +5.5 L with mild peripheral edema noted on exam
Give furosemide 20 mg IV once
Nephrology following
# Abnormal urinalysis
UA 01/14: No WBCs, - LE, - nitrites, 1+ blood
UA 01/15: Many bacteria, WBCs >100, + LE, + blood; culture shows GBS
Hold off on antibiotics for now
Monitor CBC, temperature curve
#Depression
#Suspected suicide attempt
Psychiatry consulted
Possible psychiatric hospitalization following acute medical management
#Anemia
Hb 11.0, stable
Suspected dilutional, as patient has received >6 L of IVFs since presentation
Monitor CBC, clinical status
#Hypokalemia
K 3.7 this morning, subsequently repleted
Monitor BMP
DVT PPx: Lovenox 40 mg SC daily
GI PPx: No indication s/p extubation
Subjective Dataa
Subjective Data
Date of Service:
Date of Service: January 17, 2025
Subjective:
Patient seen at bedside on hospital day #4. Patient was awake and able to answer questions, though still intubated and mechanically ventilated when initially seen. Denied pain or chills. Mag and K repleted this morning. No agitation or
restlessness overnight. Patient underwent SBT with CPAP 5/5/40% this morning. He did well with SBT and was subsequently extubated successfully. NGT was also removed successfully. Patient spiked a fever to 100.8 this morning. Sputum sample
subsequently collected.
Review of Systems
General: Fever and Other (Denies chills or pain)
Objective Data
Data Reviewed
Vital Signs / I&O / Oxygen:
Vital Signs
Temp Pulse Resp BP Pulse Ox
100.8 F H 80 10 131/97 100
01/17/25 08:39 01/17/25 09:26 01/17/25 09:26 01/17/25 08:00 01/17/25 09:26
Intake and Output
01/16/25 01/17/25 01/18/25
06:59 06:59 06:59
Intake Total 4419.2 / 4661.9 2102.7 / 2332.7 702 / 702
Output Total 1470 / 1520 1026 / 1026 50 / 50
Balance 2949.2 / 3141.9 1076.7 / 1306.7 652 / 652
SaO2 [CPAP/PSV] 99
SaO2 [A/C] 100
SaO2 100
Nasal Cannula flow liters per 2
minute
Physical Exam
General: Comfortable and T Max (100.7 overnight; 101.5 1500 yesterday)
HEENT: Normocephalic and Anicteric
Cardiovascular: S1-S2, Regular Rhythm and Other (No M/R/G; no diaphoresis; 1+ peripheral edema; pulses 2+ all extremities)
Respiratory: Clear, Non-Labored Respirations, Other (No wheezes, crackles, rhonchi; no signs of distress) and Other (ET tube no longer in place s/p extubation this morning)
GI: Soft, Non Distended, Non Tender and Other (NGT no longer in place)
Neurology: Awake and Other (Answers questions appropriately)
Skin: Warm, Dry and Good Color
Labs/Micro/Reports
Lab Data
01/17/25 05:10
01/17/25 05:10
Laboratory Results
01/17/25 01/17/25
04:53 09:33
pH 7.44 7.43
pCO2 35 36
pO2 124 H 129 H
HCO3 23.8 23.9
O2 Delivery Level
Microbiology
01/15/25 06:22 Urine Urine Culture - Final
Streptococcus agalactiae
--- NOTE | 2025-01-17 10:32 | PTCARENOTE ---
Pt extubated at 1000 to room air, sats range from 89-94%. Assisted oob to chair with assist of 3 d/t unsteady on feet. Voice hoarse, oriented but forgetful. Mother called for update and pt gave permission for her to be updated. Placed as
secondary contact.
--- NOTE | 2025-01-17 11:06 | PTCARENOTE ---
Placed on 2ln, Sats 96%. Will discuss resp toileting/IS/Acapella in rounds.
[2025-01-17] MEDS: LASIX 20 MG IV (12:16)
[2025-01-17] MEDS: UNASYN IV ×3 (12:17→23:43)
--- NOTE | 2025-01-17 12:48 | W.PN.NEPH.PH ---
Today's Communication / Plan
-
ok for lasix, follow labs
Assessment/Plan
-
Impression:
Toxic ingestion of alcohol suspected gasoline in ethylene
History of hypertension
History of hypothyroid
Previous history of suicide
Vent dependent respiratory failure
Plan:
Status post dialysis on 01/14 and 01/15 for high osmolar gap and Ethylene glycol level
level from 01/16 was 48 so did not require HD , can removed HD catheter
mild hyponatremia possible multifactorial, ok for lasix
BP stable
d/w nursing
-
-
Date of Service: January 17, 2025
CC / HPI / ROS
-
Chief Complaint:
Toxic ingestion
History of Present Illness:
Remains intubated but awake and interactive on the vent
Creatinine normal at 0.6, sodium low 130. wt slightly up
Hemodynamically stable
Review of Systems:
Nonoliguric via Shelley
no pain, horse voice, extubated this am
Labs
-
Labs:
WBC 8.7 10^3/uL (4.8-10.8) 01/17/25 05:10
RBC 3.12 10^6/uL (4.70-6.10) L 01/17/25 05:10
Hgb 11.0 g/dL (13.0-18.0) L 01/17/25 05:10
Hct 32.3 % (39.0-52.0) L 01/17/25 05:10
Plt Count 150 10^3/uL (130-400) 01/17/25 05:10
Sodium 130 mmol/L (135-145) L 01/17/25 05:10
Potassium 3.7 mmol/L (3.5-5.1) 01/17/25 05:10
Chloride 101 mmol/L (98-107) 01/17/25 05:10
Carbon Dioxide 24 mmol/L (22-30) 01/17/25 05:10
BUN 8 mg/dl (9-20) L 01/17/25 05:10
Creatinine 0.6 mg/dL (0.7-1.3) L 01/17/25 05:10
eGFR > 60.00 01/17/25 05:10
Glucose 136 mg/dl (70-99) H 01/17/25 05:10
Calcium 8.0 mg/dl (8.4-10.2) L 01/17/25 05:10
Phosphorus 2.6 mg/dl (2.5-4.5) 01/17/25 05:10
Albumin 3.1 g/dl (3.5-5.0) L 01/17/25 05:10
Physical Exam
-
Vital Signs:
Vital Signs
Temp Pulse Resp BP Pulse Ox
99.2 F 87 16 147/81 94
01/17/25 11:00 01/17/25 12:04 01/17/25 12:04 01/17/25 12:04 01/17/25 12:04
Cardiovascular:: Regular rate and rhythm
Respiratory:: Bilateral: CTA (decreased)
Lung Excursion:: Normal
Abdomen:: Nontender and Soft
Bowel Sounds:: Normal
Extremity Edema:: None: Bilateral:
Shelley Catheter: Yes
--- NOTE | 2025-01-17 12:58 | PTCARENOTE ---
Pt ambulated around bed using walker (incorrectly) with myself and PT. c/o dizziness upon return to bed but vss. pt requested classical music upon return to bed. Ambulated without oxygen and sats low to mid 90s once returned to bed. Left on room
air.
--- NOTE | 2025-01-17 14:07 | PTCARENOTE ---
pt seen at bedside by speech therapist with present. given hoarse voice, recommended only sips and chips with meds in applesauce. no diet for today. will come tomorrow to eval for diet.
--- NOTE | 2025-01-17 14:27 | CM ---
Chart reviewed
PT recommends SNF when medically stable for discharge
Spoke w/ [facility] counselor via phone; reported they will meet with patient when medically stable
Discharge plan pending hospital course
--- NOTE | 2025-01-17 15:43 | PTOTSP ---
Speech Therapy Evaluation:
Pt with acute risk factors for dysphagia given current admission for polysubstance intoxication, TME, and respiratory failure, requiring intubation from 01/14-01/17. At bedside, no overt s/sx of aspiration observed and pt passed 3oz swallow screen.
Pt on room air, WBC WNL, and CXR without concern for PNA. Despite this, given prolonged intubation, nearly aphonic vocal quality, and reduced velar elevation, cannot rule out cranial verve X involvement and subsequent impact on airway protection.
Recommend temporary NPO with FRUIT AND VEGETABLE PACKER reassessment tomorrow to determine if pt appropriate for diet initiation versus need for instrumental assessment.
Recommend:
1. Temporary NPO
2. Medications in puree
3. ARHP via sparing ice chips and sips of water following oral care
4. FRUIT AND VEGETABLE PACKER to follow to assess candidacy for diet initiation versus need for instrumental assessment. Of note, would not recommend FEES given DHT had to be pulled for pressure ulcer in nose.
[2025-01-17] MEDS: PHENOBARBITAL IV (16:14)
--- NOTE | 2025-01-17 16:39 | PTCARENOTE ---
Dr Green saw pt at bedside. Continue 1:1.
[2025-01-17] MEDS: LOVENOX 40 MG SC (17:53)
--- NOTE | 2025-01-17 20:28 | PTCARENOTE ---
Assumed care of patient. Patient is drowsy but oriented, able to move all extremities and follows commands. He is in NSR, trace edema throughout extremities, pulses are all palpable. He is on room air, with lungs diminished on the left lower side.
Abdomen is soft, non-tender, bowel sounds present. Condom catheter in place, no urine output as of time of assessment. Skin is c/d/i. IV sites are c/d/i.
[2025-01-17] MEDS: LUMINAL 64.8 MG PO (21:35)
--- NOTE | 2025-01-17 21:57 | PTCARENOTE ---
Patient placed on 2L NC due to desat while sleeping. Sats 97% now on 2L.
--- NOTE | 2025-01-17 22:37 | CS.PSYCHR ---
Consult Summary - Psychiatry
-
pt seen in consultation this afternoon for suicide attempt
64 yo man brought to [facility] by EMS after being found in his car by his drinking alcohol and antifreeze. Acknowledged suicide attempt, not the first time. Pt reports distress at not being able to play guitar the way he would like, that his hands
don't work as well as they used to, and this led to an overwhelming sense of despair.
Required significant medical interventions to address poisoning (intubation, mechanical ventilation, hemodialysis) but now recovering
Past psychiatric history unclear--states he had taken an overdose of tylenol but did not receive any treatment. Has had repeated detox/rehab stays but denies psychiatric inpatient stays or outpatient care.
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 Able to discuss evolution of field as HPV vaccine reduces positive PAP tests, says AI is considered more of a threat to the field.
Past medical history sig for hypothryoidism, HTN
Cousin committed suicide
On exam pt is lying in bed in ICu on monitor, sedated, speech slightly slurred, rubbing face a lot. Oriented x 3, acknowledges suicide attempt, as well as significant alcohol overuse. States that he has some hope for improvement, but tearful as he
says it.
Impression: major depression, recurrent, severe; alcohol use disorder, severe
Rec: Will see again in am when less sedated, for now will continue 1:1 care, detox protocol
[2025-01-17] MEDS: NSS (PRESERVATIVE FREE) 0.5 ML IV (23:45)
[2025-01-17] MEDS: ATIVAN 1 MG IV (23:45)
--- NOTE | 2025-01-17 23:50 | PTCARENOTE ---
Patient becoming increasingly restless. Experiencing mild tremors and some visual hallucinations as well. PRN ativan given for increased restlessness and withdraw symptoms per order.
[2025-01-18] VITALS (14 sets, daily range): BP systolic 105–133; BP diastolic 54–86; PULSE 103; O2SAT 95; BMI 26.7
[2025-01-18 03:36] LABS: Hematocrit 30.9 % (39.0-52.0); Hemoglobin 10.8 g/dL (13.0-18.0); Mean Corp Hgb Conc. 35.0 g/dL (33.0-37.0); Mean Corpuscular Volume 103.7 fL (80.0-94.0); Platelet Count 164 10^3/uL (130-400); Red Cell Dist. Width 12.2 % (11.5-14.5)
[2025-01-18 04:00] LABS: ALT (SGPT) 15 U/L (0-50); AST (SGOT) 19 U/L (17-59); Albumin 3.1 g/dl (3.5-5.0); Alkaline Phosphatase 22 U/L (38-126); Blood Urea Nitrogen 6 mg/dl (9-20); Calcium 8.4 mg/dl (8.4-10.2); Carbon Dioxide 27 mmol/L (22-30); Chloride 99 mmol/L (98-107); Estimated Creatinine Clearance > 125 ml/min; Glucose 81 mg/dl (70-99); Potassium 3.5 mmol/L (3.5-5.1); Sodium 130 mmol/L (135-145); Total Protein 5.5 g/dl (6.3-8.2); eGFR > 60.00
--- NOTE | 2025-01-18 04:04 | PTCARENOTE ---
Patient is sleeping, no changes in assessment at this time.
[2025-01-18] MEDS: UNASYN IV ×4 (05:46→23:28)
[2025-01-18] MEDS: KCL 270 MEQ IV (06:05)
[2025-01-18] MEDS: FOMEPIZOLE 101.29 MG IV (06:24)
--- NOTE | 2025-01-18 07:14 | W.PN.HOSP.TC ---
Today's Communication/Plan
-
Patient received fomepizole 1290 mg, today on day 2 for Unasyn 3 gram.
incentive spirometer
continue iv ppi
psychiatrist consult
pt, ot consult
down grade from ICU if the patient is stable, ethylene glycol less than 20 today.
psychiatrist consulted 1:1
swallow study: Recommended for regular diet with thin liquids.
safe tray depending on his tolerance
unasyn- ampicillin/ sulbactam 3 g iv.
Assessment / Plan
Assessment / Plan
64 yr old male with k/h/o hypertension, hypothyroidism, chronic alcohol intake for the past 1 year admitted to the ER with incoherent state due to ethylene glycol ingestion, required intubation at the ED.
# Complicated urinary tract infection on Shelley's catheter with blood culture strep agalactiae positive:
Currently he has no allergy history,
Complicated UTI --on Shelley's catheters will continue for 10 days IV Unasyn 3 g 8 hourly day 2
Low urine output may be secondary to hemodialysis.
# Antifreeze ingestion-ethylene glycol/methanol:
NG tube in place.
Vitals 117/70, 85 bpm, saturation 100, RR 16,
I/O +2949 mL, urine Shelley's drained 150ml
Currently on Ringer lactate, he followed commands hide mild tremor may be due to alcohol withdrawal.
Labs: WBC 6.8, hemoglobin 11.3--10.9 low, sodium 134-132 low, potassium 3.5 currently receiving potassium chloride IV rider, magnesium 1.7, IV compost balance nutrition 20 mL/h
Initial ethylene glycol 450-- 420-- ,43.20 --- 20.59--6.33 ( if its less than 20 mg/dl then hold fomepizole), no need for further hemodialysis.
Currently on normal saline, acetaminophen 650 mg, enoxaparin, folic acid 1 mg, potassium chloride to 60 mL, magnesium 1 to 2 mL, phenobarbital 97.5 mg, thiamine.
On examination: Lungs right-sided crackles, left side lower lobe crackles present the patient currently on aspiration precautions.
Serum Osmo 454 high at the time of admission-358(after hemodialysis)--328 high
PT 13.7 , INR 1.04, APTT 29.7 WNL
Triglycerides 70--74
At the time of admission lactic acid 3.2 high--1.9 normal
Urinalysis negative for UTI
Carboxyhemoglobin 2.9
Toxicology positive for fentanyl, benzodiazepines.
Hepatitis panel negative includes HBs antibody.
Chest x-ray 01/16:
Lines and tubes: The tip of endotracheal tube is approximately 5 cm above the felicita. The tip of the right internal jugular central venous catheter is in the region of the lower third of the superior vena cava. The tip of the feeding tube is off the
edge of the film but below the level of the GE junction
Lungs: The lungs are clear. No pleural effusion or pneumothorax.
Chest x-ray 01/15:
Mild opacity in the basilar segments of the lower lobes of both lungs which appears unchanged. Diagnostic possibilities are (1) subsegmental atelectasis/scarring or (2) mild aspiration pneumonia.
2. Mildly decreased bilateral lung volumes.
3. Endotracheal tube, nasogastric tube, and right IJ central venous catheter in place.
Head CT 01/14: No evidence of acute intracranial abnormality
Vascular ultrasound 01/14: unremarkable placement of nontunneled right internal jugular hemodialysis catheter. Chest radiograph ordered to confirm catheter positioning prior to use.
Abdominal x-ray 01/14:
The tip of the feeding tube is in the region of the gastric body. The tip of a central venous catheter is the region of the middle third of the superior vena cava.
Bowel: There is a nonobstructive bowel gas pattern.
No evidence of endorgan damage creatinine 0.6, GFR> 60 within normal limit
Cellophaner recommended for hemodialysis for today after checking osmolar gap, ethylene glycol.
Initially Osmolar gap :> 70 unmeasured:454 - calculated ~380) strongly suggest the presence of unmeasured osmoles including ethylene glycol, henceforth due to neurological changes and likely strong presence of elevated levels of ethylene glycol will
pursue dialysis this evening.
Currently the patient is receiving Ringer lactate.
Monitor CBC, CMP
# Alcohol usage disorder:
His last drink yesterday
Alcohol level was 353
Calculated MSAS protocol once he becomes conscious.
Alcohol, beta hydroxybutyrate screening results are pending.
# gasoline ingestion:
currently on scd due to bleeding risk,
iv ppi prophylaxis include Protonix 40 mg IV started,
#Suicidal attempt psychiatrist consultation in future
# Hypothyroidism:
TSH monitoring
Continue levothyroxine
Code: Full
Disposition: Home
Diet: N.p.o. currently on IVF
DVT: Lovenox
Anticipated Discharge: 24 - 48 hours
Subjective/Interval History
-
Date of Service: January 18, 2025
Overnight patient seen by psychiatrist, patient admitted he attempted suicide, not the first time. Previously he had repeated detox/rehab stays but denied psychiatric inpatient stays/outpatient care.
He has a family history of cousin committed suicide. Currently he is diagnosed with major depression, alcohol use disorder and psychiatrist recommended 1:1 care, detox protocol.
Today morning patient has a flat affect, sluggish(secondary to sedatives). He denied throat pain, chest pain, shortness of breath, dizziness. However he is bed ridden currently he did not take a walk around. PT, OT consulted earlier this week.
Objective Data
-
Labs:
Laboratory Results
01/18/25
03:08
WBC 7.0
Hgb 10.8 L
Hct 30.9 L
Plt Count 164
Sodium 130 L
Potassium 3.5
Chloride 99
Carbon Dioxide 27
BUN 6 L
Creatinine 0.6 L
Glucose 81
Calcium 8.4
Total Bilirubin 0.9
AST 19
ALT 15
Alkaline Phosphatase 22 L
Vital Signs:
Vital Signs
Temp Pulse Resp BP Pulse Ox
98.5 F 94 17 133/86 99
01/18/25 04:05 01/18/25 06:00 01/18/25 06:00 01/18/25 06:00 01/18/25 06:00
I&O
01/17/25 01/18/25 01/19/25
06:59 06:59 06:59
Intake Total 2102.7 / 2332.7 1230 / 1230
Output Total 1026 / 1026 2350 / 2350
Balance 1076.7 / 1306.7 -1120 / -1120
Physical Exam
-
General: No Apparent Distress
HEENT: Moist Mucous Membranes
Respiratory: Clear to Auscultation
Cardiac: Regular Rhythm
GI: Soft, Nontender and Nondistended
Genito-urinary: No Costovertebral Tender
Musculoskeletal: No Clubbing and No Cyanosis
Skin: Warm
Neuro: AO x 3
Hematologic / Lymphatic: No Lymphadenopathy
Psych: Depressed and Suicidal
--- NOTE | 2025-01-18 07:30 | PTCARENOTE ---
Addendum entered by Netta Loredo RN 01/18/25 12:55:
1:1 Sitter at bedside, suicide precautions.
Original Note:
Patient received lying in bed with eyes closed, respirations non labored. Rouses easily to name called. Denies pain. 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 IV sites right AC, left AC and right FA all flush and WDL. BBS diminished t/o.
Occasional harsh Productive cough with thick snow secretions, suctions self with yankauer. Sats 98-99% on 2L/nc, placed on RA. S1S2 regular, SR on CM. Positive pulses x 4 extremities, generalized anasarca 1+. Condom catheter in place, no UO noted in
collection bag. Abdomen soft and round, NT, positive bowel sounds. Bed in low and locked position, HOB up, Aspiration precautions. Passed nurse swallow eval. Takes po meds with applesauce without difficulty. Repositioned every 2 hours, call baird
within reach.
[2025-01-18] MEDS: FOLVITE 1 MG TUBE (07:45)
[2025-01-18] MEDS: VITAMIN B1 100 MG TUBE (07:45)
[2025-01-18] MEDS: LUMINAL 64.8 MG PO ×3 (07:45→23:28)
--- NOTE | 2025-01-18 09:54 | W.PN.INTV ---
Today's Communication / Plan
Recommendations
Doing well s/p extubation yesterday
Continue phenobarbital, lorazepam
Continue fomepizole while trending ethylene glycol
Continue empiric antibiotics given fever in recent days
Psychiatry evaluation ongoing
Assessment
-
Assessment: Patient is a 64-year-old male with PMH of AUD, HTN, and depression who is being managed in the ICU for AMS and suspected (though unidentified) toxic ingestion this morning. Patient was sedated, intubated, and mechanically ventilated in
the ED for AMS. Labs showed elevated lactate, serum osmolality, serum osmolal gap (65.4) with alcohol correction, and alcohol levels (353) along with normal pH on VBG, though this was taken post intubation. UDS, carboxyhemoglobin, salicylates, and
acetaminophen unremarkable. CXR and CT head unremarkable. Hemodynamically stable on admission to ICU. Suspect TME 2/2 toxic ingestion.
01/15: Continues to be sedated, intubated, mechanically ventilated (currently 16/500/5/40%). Urgent HD completed yesterday evening. Lorazepam given for tremors with activity/care this morning. Per nursing, improving mentation this morning prior to
lorazepam administration. No signs of distress, satting well. Hemodynamically stable. Potassium repleted for K 3.4 this morning. Fomepizole regimen ongoing. Propofol drip, as needed lorazepam ongoing for sedation. Fentanyl drip ongoing for
pain control. IVF's given n.p.o. status. Serum osm 358 this morning, with osmolal gap 80. Improved from serum osm 454 and osmolal gap 161 yesterday. Lactate now 1.9 from 3.2 on presentation. ABG this morning shows mild metabolic alkalosis�pH
7.49, pCO2 36, HCO3 27.4, pO2 131. CPK WNL. Ethylene glycol level still pending. UA shows many bacteria, WBCs >100, + LE, + blood.
01/16: Continues to be intubated and mechanically ventilated (currently 16/550/5/40%). Second HD session completed yesterday evening. Lorazepam 2 mg given for tremors, restlessness this morning. Mag and K repleted. Febrile to 101.4 at noon
yesterday and again to 100.7 overnight. Ethylene glycol still markedly elevated but trending downward, as follows: 460 (01/14 @ 1400), 198 (01/15 @ 0449), 123 (01/15 @ 1427). Serum osmolality normalized to 284 this morning, with osmolal gap now
essentially normal at 12 (trend 161 -> 82 -> 12). ABG this morning shows mild respiratory alkalosis (pH 7.5, pCO2 31, HCO3 24.2, pO2 88). Urine culture shows GBS, though inconsistent prior UAs do not show a clear UTI picture.
01/17: Extubated successfully this morning following SBT with reassuring blood gas. No agitation, restlessness, or tremors overnight or this morning. Magnesium and K repleted. Febrile to 100.8. No leukocytosis. Sputum sample taken this morning.
Ethylene glycol improving to 43, which has been incrementally decreasing from initial 460 on 01/14 prior to HD x 2 01/14 and 01/15. Serum osm 278 and osmolal gap 8 both normal this morning. UOP low at ~30 mL/h overnight. Mild peripheral edema
noted. Sodium 130, suspected 2/2 hypervolemia.
01/17: Patient awake, sitting up in bed, answering questions appropriately. Restless with tremors and visual hallucinations overnight, necessitating lorazepam 1 mg. No signs of alcohol withdrawal at present. Hemodynamically stable. Breathing
comfortably, satting well on RA.
Plan:
#Suspected toxic ingestion
#Toxic metabolic encephalopathy
#Lactic acidosis
#Ventilator dependent respiratory failure
Successfully extubated yesterday
S/p urgent HD x 2 (evenings of 01/14, 01/15); per nephrology, no further HD expected
Lorazepam as needed for agitation
Continue fomepizole regimen until ethylene glycol <20 (most recent level 43, which was collected 01/16 @ 0324)
Continue thiamine, folate
Kidney function stable with Cr 0.6, with UOP ~60 mL/h
Serum osmolality, osmolal gap normalized in recent days
Trend BMP, CBC, ethylene glycol
#Alcohol use disorder
#Alcohol withdrawal
#Fever
No signs of alcohol withdrawal presently, though did have tremors, restlessness, visual hallucinations overnight
Continue phenobarbital taper; continue lorazepam as needed for agitation
Continue thiamine, folate
Suspect fever 2/2 alcohol withdrawal
#Hyponatremia
Suspect hypervolemic hyponatremia, as patient is +4.5 L with mild peripheral edema noted on exam
Nephrology following
#Fever
#Abnormal urinalysis
#LLL opacity
Recurrent fever in recent days, though afebrile last 24 hours
Empiric Unasyn started yesterday
Blood cultures pending
UA 01/14: No WBCs, - LE, - nitrites, 1+ blood
UA 01/15: Many bacteria, WBCs >100, + LE, + blood; culture shows GBS
CXR 01/17: Bibasilar opacities
Monitor CBC, temperature curve
#Depression
#Suicide attempt
Psychiatry consulted
Patient remains 9
Possible psychiatric hospitalization following acute medical management
#Anemia
Hb 10.8, stable
Suspected dilutional, as patient is positive ~4.5 L since presentation
Monitor CBC, clinical status
#Hypokalemia
K 3.5 this morning, subsequently repleted
Monitor BMP
DVT PPx: Lovenox 40 mg SC daily
GI PPx: No indication s/p extubation
Disposition: Possible downgrade to telemetry once ethylene glycol <20
Subjective Dataa
Subjective Data
Date of Service:
Date of Service: January 18, 2025
Subjective:
Patient seen at bedside on hospital day #5. Patient is awake, sitting up in bed, and able to answer questions appropriately. No current complaints. Denies chest pain, shortness of breath, abdominal pain, dysphagia, or F/F/C. Patient recalls
being disoriented overnight. Per nursing, patient was restless with tremors and visual hallucinations, which prompted administration of lorazepam 1 mg x 1.
Review of Systems
General: Other (Denies fever, fatigue, or chills)
HEENT: Other (Denies dysphagia)
Cardiopulmonary: Other (Denies chest pain, shortness of breath)
GI: Other (Denies abdominal pain)
Objective Data
Data Reviewed
Vital Signs / I&O / Oxygen:
Vital Signs
Temp Pulse Resp BP Pulse Ox
98.5 F 89 11 120/79 95
01/18/25 04:05 01/18/25 09:00 01/18/25 09:00 01/18/25 08:00 01/18/25 09:00
Intake and Output
01/17/25 01/18/25 01/19/25
06:59 06:59 06:59
Intake Total 2102.7 / 2332.7 1230 / 1230
Output Total 1026 / 1026 2350 / 2350
Balance 1076.7 / 1306.7 -1120 / -1120
SaO2 [CPAP/PSV] 99
SaO2 [A/C] 100
SaO2 95
Nasal Cannula flow liters per 2
minute
Physical Exam
General: Comfortable and T Max (100.8)
HEENT: Normocephalic, Anicteric and Other (Voice stronger than yesterday)
Cardiovascular: S1-S2, Regular Rhythm and Other (No M/R/G; no diaphoresis; trace peripheral edema; pulses 2+ all extremities)
Respiratory: Clear, Non-Labored Respirations and Other (No wheezes, crackles, rhonchi; no signs of distress)
GI: Soft, Non Distended and Non Tender
Neurology: Awake, AO x 3, No Motor Deficits and Other (Answers questions appropriately)
Skin: Warm, Dry and Good Color
Labs/Micro/Reports
Lab Data
01/18/25 03:08
01/18/25 03:08
Microbiology
01/17/25 10:07 Endotracheal Respiratory Culture - Preliminary
Usual Respiratory [place]
01/17/25 10:07 Endotracheal Gram Stain - Preliminary
01/15/25 06:22 Urine Urine Culture - Final
Streptococcus agalactiae
[2025-01-18 10:56] LABS: Glycohemoglobin (HgbA1c) 5.3 % (4.0-5.9)
--- NOTE | 2025-01-18 11:45 | PTCARENOTE ---
Psych at bedside having discussion with patient.
--- NOTE | 2025-01-18 12:15 | PTCARENOTE ---
Patient assisted OOB to chair. Gait slow and shuffling, slightly unsteady but good strength. Tray provided. Patient ate 100% without difficulty. HNV. Bladder scanned for 287. Urinal provided. Instructed to try and void when feels urge, denies urge
at this time. Rest of physical assessment unchanged. VSS. Denies pain.
[2025-01-18] MEDS: MIRALAX 17 GRAMS TUBE (12:37)
[2025-01-18] MEDS: SENOKOT-S 2 TABLET PO (12:38)
--- NOTE | 2025-01-18 13:10 | PTCARENOTE ---
Sakshi from OT and Adarsh from PT at bedside.
--- NOTE | 2025-01-18 13:13 | CM ---
Chart reviewed. Spoke with at ICU bedside
Remains on 1:1 and seen by psych
DCP >48 hours and may need inpt psych after medically stable
BCARES on board
--- NOTE | 2025-01-18 15:15 | PTCARENOTE ---
Assisted back to bed with assist x 1. Tolerated chair well.
--- NOTE | 2025-01-18 15:30 | W.PN.UPDATE ---
Update Note
Progress Note Update
pt seen, met with his . She provided history of weekend binge drinking, but able to stop and work fine during week. Has had 2 DUIs, They have been for 38 years, no children despite trying. She reports stressors of of her mother 5
years ago hard on both of them (mother had lived with them) and of dog just a few weeks ago. She had been very surprised by the overdose. Very dependent on him, does not know what she would do without him.No history of psychiatric care.
Pt difficult to interview, keeps eyes closed, speaks softly with long latency of response. Acknowledges suicide attempt, now states he wants to live, indicates willingness to go to inpatient psychiatric care. Difficult to follow at times (speaks
very softly) says he has been suicidal at times in his life when her realized he was not going to be able to follow his dreams; latest was difficulty with hands making it hard for him to play guitar.
--- NOTE | 2025-01-18 15:37 | W.PN.UPDATE ---
Update Note
Progress Note Update
Pt seen for assessment. appears to be in better spirits. has been approved for short term leave, relieved. also relieved hopes to get him to psychiatry unit soon. long discussion of sobriety, pt aware that he needs to commit to this.
--- NOTE | 2025-01-18 17:10 | PTCARENOTE ---
Addendum entered by Netta Loredo RN 01/18/25 17:56:
1:1 with patient during transfer and arrival to floor. Advise patient to order dinner. Advise RN that telemetry is to be continued.
Original Note:
Report given verbally to ZOHREH Monroe. Patient belongings gathered. Patient transferred to floor via wheelchair accompanied by RN and PCT. Belongings sent.
[2025-01-18] MEDS: LOVENOX 40 MG SC (17:55)
--- NOTE | 2025-01-18 18:08 | PTCARENOTE ---
Patient Marcia notified of patient transfer to [facility].
--- NOTE | 2025-01-18 18:29 | PTCARENOTE ---
Received into room 422 from ICU. VSS. Confirmed patient is to be telemetry level of care with Dr. Lopez. NSR on tele. Denies suicidal ideation when asked. 1:1 observation maintained.
[2025-01-18] MEDS: VITAMIN B1 100 MG PO (20:12)
[2025-01-18] MEDS: SENOKOT-S 1 TABLET PO (20:12)
[2025-01-19 03:00] VITALS: BP 120/75
[2025-01-19] MEDS: UNASYN IV ×2 (05:45→11:56)
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
[2025-01-19] MEDS: MIRALAX 17 GRAMS PO (07:59)
[2025-01-19] MEDS: LUMINAL 64.8 MG PO ×2 (07:59→15:14)
[2025-01-19] MEDS: SENOKOT-S 1 TABLET PO ×2 (07:59→20:05)
[2025-01-19] MEDS: FOLVITE 1 MG PO (08:00)
[2025-01-19] MEDS: VITAMIN B1 100 MG PO ×2 (08:00→20:05)
[2025-01-19 08:09] VITALS: BP 126/85
[2025-01-19 08:16] LABS: Hematocrit 34.6 % (39.0-52.0); Hemoglobin 12.1 g/dL (13.0-18.0); Mean Corp Hgb Conc. 35.0 g/dL (33.0-37.0); Mean Corpuscular Volume 101.8 fL (80.0-94.0); Platelet Count 225 10^3/uL (130-400); Red Cell Dist. Width 12.1 % (11.5-14.5)
[2025-01-19 08:37] LABS: ALT (SGPT) 15 U/L (0-50); AST (SGOT) 19 U/L (17-59); Albumin 3.5 g/dl (3.5-5.0); Alkaline Phosphatase 26 U/L (38-126); Blood Urea Nitrogen 6 mg/dl (9-20); Calcium 8.6 mg/dl (8.4-10.2); Carbon Dioxide 27 mmol/L (22-30); Chloride 98 mmol/L (98-107); Estimated Creatinine Clearance > 125 ml/min; Glucose 93 mg/dl (70-99); Potassium 3.5 mmol/L (3.5-5.1); Sodium 132 mmol/L (135-145); Total Protein 6.0 g/dl (6.3-8.2); eGFR > 60.00
[2025-01-19 11:05] VITALS: BP 127/76
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
[2025-01-19 15:28] VITALS: BP 115/60
[2025-01-19] MEDS: LOVENOX 40 MG SC (17:04)
[2025-01-19 19:00] VITALS: BP 141/84
[2025-01-19] MEDS: AUGMENTIN 875 MG/125 MG 1 TABLET PO (20:04)
[2025-01-19] MEDS: LUMINAL 32.4 MG PO (21:32)
[2025-01-19 22:51] VITALS: BP 118/70
[2025-01-20 02:35] VITALS: BP 135/85
[2025-01-20 05:53] VITALS: BMI 26.6
[2025-01-20 07:07] VITALS: BP 136/88
[2025-01-20] MEDS: AUGMENTIN 875 MG/125 MG 1 TABLET PO ×2 (07:24→19:39)
[2025-01-20] MEDS: SENOKOT-S 1 TABLET PO ×2 (07:24→19:39)
[2025-01-20] MEDS: LUMINAL 32.4 MG PO ×3 (07:24→21:40)
[2025-01-20] MEDS: VITAMIN B1 100 MG PO ×2 (07:24→19:39)
[2025-01-20] MEDS: MIRALAX 17 GRAMS PO (07:25)
[2025-01-20] MEDS: FOLVITE 1 MG PO (07:25)
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
[2025-01-20 08:24] LABS: Hematocrit 33.6 % (39.0-52.0); Hemoglobin 11.6 g/dL (13.0-18.0); Mean Corp Hgb Conc. 34.5 g/dL (33.0-37.0); Mean Corpuscular Volume 101.5 fL (80.0-94.0); Platelet Count 289 10^3/uL (130-400); Red Cell Dist. Width 12.2 % (11.5-14.5)
[2025-01-20 08:30] LABS: ALT (SGPT) 14 U/L (0-50); AST (SGOT) 18 U/L (17-59); Albumin 3.3 g/dl (3.5-5.0); Alkaline Phosphatase 24 U/L (38-126); Blood Urea Nitrogen 6 mg/dl (9-20); Calcium 8.5 mg/dl (8.4-10.2); Carbon Dioxide 22 mmol/L (22-30); Chloride 103 mmol/L (98-107); Estimated Creatinine Clearance > 125 ml/min; Glucose 92 mg/dl (70-99); Potassium 3.5 mmol/L (3.5-5.1); Sodium 131 mmol/L (135-145); Total Protein 5.9 g/dl (6.3-8.2); eGFR > 60.00
[2025-01-20 10:55] VITALS: BP 116/74
--- NOTE | 2025-01-20 12:41 | W.PN.UPDATE ---
Addendum entered and electronically signed by Fannie Montoya MD 01/20/25 14:40:
b cares consult
Original Note:
Update Note
Progress Note Update
patient seen chart reviewed. spoke with nursing. at bedside. mr huynh was a little more talkative. i asked him about the overdose...he said he became overwhelmed with finances among other issues and just felt would be better off
without him and with his insurance money. she interjected here and told him how much she loved him and how hard it would be for her without him. we talked about the illness of alcoholism...the need to have a plan for sobriety if that iis what he
wants at this point he says he does. he chose antifreeze bc he 'heard' it could kill him inexpensively. we also talked about the interplay between depression and substance abuse, spoke to cm. there is as of yet not a disposition for him. i
recommend dual dx. will continue one to one for now as i am not entirely comfortable with dc it . patient does say he is happy he is alive but i am still a bit uncomfortable with dc of one to one.
[2025-01-20] MEDS: SYNTHROID 75 MCG PO (13:32)
--- NOTE | 2025-01-20 13:57 | VATNOTE ---
VAT team monitoring two sites r&l ac of phlebitis. Erythema completely resolved, palpable cord remains to both. Painless. Recommend continued warm compresses.
[2025-01-20 15:02] VITALS: BP 125/74
[2025-01-20] MEDS: LOVENOX 40 MG SC (17:21)
[2025-01-20 23:08] VITALS: BP 142/80
[2025-01-21 08:08] VITALS: BP 139/80
[2025-01-21 08:45] LABS: Hematocrit 33.2 % (39.0-52.0); Hemoglobin 11.9 g/dL (13.0-18.0); Mean Corp Hgb Conc. 35.8 g/dL (33.0-37.0); Mean Corpuscular Volume 100.9 fL (80.0-94.0); Platelet Count 338 10^3/uL (130-400); Red Cell Dist. Width 12.1 % (11.5-14.5)
[2025-01-21 09:27] LABS: ALT (SGPT) 17 U/L (0-50); AST (SGOT) 24 U/L (17-59); Albumin 3.7 g/dl (3.5-5.0); Alkaline Phosphatase 26 U/L (38-126); Blood Urea Nitrogen 4 mg/dl (9-20); Calcium 8.9 mg/dl (8.4-10.2); Carbon Dioxide 27 mmol/L (22-30); Chloride 102 mmol/L (98-107); Estimated Creatinine Clearance > 125 ml/min; Glucose 96 mg/dl (70-99); Potassium 3.8 mmol/L (3.5-5.1); Sodium 134 mmol/L (135-145); Total Protein 6.4 g/dl (6.3-8.2); eGFR > 60.00
[2025-01-21] MEDS: SENOKOT-S 1 TABLET PO ×2 (09:31→20:21)
[2025-01-21] MEDS: LUMINAL 32.4 MG PO ×2 (09:31→15:57)
[2025-01-21] MEDS: SYNTHROID 75 MCG PO (09:31)
[2025-01-21] MEDS: AUGMENTIN 875 MG/125 MG 1 TABLET PO ×2 (09:31→20:21)
[2025-01-21] MEDS: FOLVITE 1 MG PO (09:32)
[2025-01-21] MEDS: VITAMIN B1 100 MG PO ×2 (09:32→20:21)
[2025-01-21] MEDS: MIRALAX 17 GRAMS PO (09:32)
--- NOTE | 2025-01-21 13:01 | W.PN.HOSP.TC ---
Addendum entered and electronically signed by Cara Martinez MD 01/21/25 17:48:
I saw and evaluated the patient independently. I reviewed the resident�s note and agree with findings and plan as documented by Dr. Serrato.
GENERAL: well developed, well nourished, male in no apparent distress
HEENT: NC/AT
HEART: regular rate and rhythm, +S1, +S2
LUNGS : clear to auscultation bilaterally
ABDOM: soft, nontender, nondistended, + bowel sounds
EXT: no cyanosis, clubbing, or edema
NEUROLOGIC: grossly intact
Acute Toxin ingestion (intentional); Antifreeze ingestion-ethylene glycol/methanol--suicidal ideation--s/p HD, intubation--Toxicology was also positive for fentanyl, benzodiazepines--Extubated and Central line discontinued 01/17, moved from ICU
01/18--cont 1:1--apprec psych--pt agreeable to inpt psych
Complicated urinary tract infection on Wilson's catheter with blood culture strep agalactiae positive--complicated UTI (Strep agalactiae)--wilson cath--will continue for 10 days, has received IV Unasyn 3 g 8 hourly--Augmentin 875 mg/clavulanic acid
125 mg 12 hourly started 01/17 to be completed 01/24- 7day course --S/p resolved pneumonia findings chest x-ray 01/15--
Substance use disorder--His last drink was prior to admission--Alcohol level normalized at 353, benzo and fentanyl on tox screen--Currently on MSAS Protocol ranges 0-1, last done is 1--Current Phenobarb dose is 32.4mg
Hypothyroidism--TSH monitoring--Levothyroxine dose was increased to 75mcg this admission
Mild anemia, like 2 to Chronic alcohol use- Currently on B1/B9 supplementation
Code status-- Full
Disposition: In-patient psych facility, after which rehab
DVT-- Lovenox
Original Note:
Today's Communication/Plan
-
Patient to discuss with [facility] to consider placement with Inpatient psych facility
Assessment / Plan
Assessment / Plan
Mr Mancia a 64 yr old male with PMH hypertension, hypothyroidism, alcohol use disorder who presented to the 7 days ago following ED chronic alcohol intake for the past 1 year admitted to the ER with incoherent state due to ethylene glycol
ingestion and other possible substances.
# Acute Toxin ingestion; Antifreeze ingestion-ethylene glycol/methanol:
Vitals, hemodynamically stable,
Off Ventilatory support and HD X2.
Labs now stabilized with Ethylene Glycol 6.33, Serum Osmo 328 high, PH- 7.43, CO2- 36 lactic acid at 1.9
Toxicology was also positive for fentanyl, benzodiazepines.
Extubated and Central line discontinued 01/17, moved from ICU 01/18
# Intentional Toxin ingestion;
# Suicidal attempt
-On 1 to 1
-Psych following, reccs appreciated with thanks
-Discharge to an inpatient psych facility
# Complicated urinary tract infection on Wilson's catheter with blood culture strep agalactiae positive:
Currently he has no allergy history,
Complicated UTI --on Wilson's catheters will continue for 10 days, has received IV Unasyn 3 g 8 hourly.
Augmentin 875 mg/clavulanic acid 125 mg 12 hourly started 01/17 to be completed 01/24- 7day course .
S/p resolved pneumonia findings chest x-ray 01/15:
Mild opacity in the basilar segments of the lower lobes of both lungs which appears unchanged. Diagnostic possibilities are (1) subsegmental atelectasis/scarring or (2) mild aspiration pneumonia.
2. Mildly decreased bilateral lung volumes.
3. Endotracheal tube, nasogastric tube, and right IJ central venous catheter in place.
# Substance use disorder:
His last drink was prior to admission
Alcohol level normalized at 353, benzo and fentanyl on tox screen
Currently on MSAS Protocol ranges 0-1, last done is 1,
Current Phenobarb dose is 32.4mg
# Hypothyroidism:
TSH monitoring
Levothyroxine dose was increased to 75mcg this admittion
#Mild anemia, like 2 to Chronic alcohol use
- Currently on B1/B9 supplememtation
Code: Full
Disposition: In-patient psych facility, after which rehab
Diet: Regular
DVT: Lovenox
Anticipated Discharge: Within 24 hours
Subjective/Interval History
-
Date of Service: January 21, 2025
Patient seen.
He has no new complains today,
Says he feels alright today
Objective Data
-
Labs:
Laboratory Results
01/21/25
08:15
WBC 4.6 L
Hgb 11.9 L
Hct 33.2 L
Plt Count 338
Sodium 134 L
Potassium 3.8
Chloride 102
Carbon Dioxide 27
BUN 4 L
Creatinine 0.6 L
Glucose 96
Calcium 8.9
Total Bilirubin 0.4
AST 24
ALT 17
Alkaline Phosphatase 26 L
Vital Signs:
Vital Signs
Temp Pulse Resp BP Pulse Ox
98.4 F 82 12 139/80 98
01/21/25 08:08 01/21/25 08:08 01/21/25 08:08 01/21/25 08:08 01/21/25 08:08
I&O
01/20/25 01/21/25 01/22/25
06:59 06:59 06:59
Intake Total 1500 / 1500 1300 / 1300
Output Total 300 / 300
Balance 1200 / 1200 1300 / 1300
Physical Exam
-
General: Well Developed
HEENT: Normocephalic and Atraumatic
Respiratory: Clear to Auscultation
Cardiac: Regular Rhythm and S1/S2
GI: Soft, Nontender and Nondistended
Musculoskeletal: No Clubbing and No Cyanosis
Skin: Warm and Dry
Neuro: Awake, Alert and Oriented; Negative Tremors
Psych: Calm
[2025-01-21 13:58] VITALS: BP 126/84; PULSE 87; O2SAT 98
--- NOTE | 2025-01-21 14:24 | W.PN.UPDATE ---
Addendum entered and electronically signed by Marcell Green MD 01/21/25 22:30:
Pt seen later in afternoon alone. Reviewed events of antifreeze ingestion, states he had gone to work, started setting up, discovered he had been given a less desirable assignment 'and I just snapped'. Went to buy antifreeze, drinking alcohol, and
parked near home. Only by luck did notice his truck nearby, found him, opened door and saw antifreeze.
Agreeable to go to inpatient psychiatry, appropriate next step prior to alcohol rehab.
Original Note:
Update Note
Progress Note Update
pt seen this am. , [facility] rep and 1:1 present. Pt indicates willingness to go to inpatient psychiatry initially prior to going to rehab program, would support this approach
[2025-01-21 15:39] VITALS: BP 114/87
--- NOTE | 2025-01-21 16:15 | CM ---
Patient seen at bedside [facility] physicians. Patient for psych and then drug and alcohol. Remains on 1:1CM will continue to follow for discharge planning needs.
Plan;psych referrals
[2025-01-21] MEDS: LOVENOX 40 MG SC (17:10)
[2025-01-21 23:13] VITALS: BP 123/72
[2025-01-22 07:23] VITALS: BP 131/77
[2025-01-22] MEDS: AUGMENTIN 875 MG/125 MG 1 TABLET PO ×2 (08:34→20:29)
[2025-01-22] MEDS: SYNTHROID 75 MCG PO (08:35)
[2025-01-22] MEDS: FOLVITE 1 MG PO (08:35)
[2025-01-22] MEDS: VITAMIN B1 100 MG PO ×2 (08:35→20:27)
[2025-01-22] MEDS: MIRALAX PO (08:38)
[2025-01-22] MEDS: SENOKOT-S PO ×2 (08:38→20:27)
[2025-01-22 08:41] LABS: Hematocrit 34.2 % (39.0-52.0); Hemoglobin 11.9 g/dL (13.0-18.0); Mean Corp Hgb Conc. 34.8 g/dL (33.0-37.0); Mean Corpuscular Volume 102.1 fL (80.0-94.0); Platelet Count 409 10^3/uL (130-400); Red Cell Dist. Width 12.3 % (11.5-14.5)
[2025-01-22 08:58] LABS: ALT (SGPT) 19 U/L (0-50); AST (SGOT) 25 U/L (17-59); Albumin 3.7 g/dl (3.5-5.0); Alkaline Phosphatase 25 U/L (38-126); Blood Urea Nitrogen 7 mg/dl (9-20); Calcium 9.1 mg/dl (8.4-10.2); Carbon Dioxide 27 mmol/L (22-30); Chloride 101 mmol/L (98-107); Estimated Creatinine Clearance > 125 ml/min; Glucose 99 mg/dl (70-99); Potassium 4.2 mmol/L (3.5-5.1); Sodium 135 mmol/L (135-145); Total Protein 6.4 g/dl (6.3-8.2); eGFR > 60.00
[2025-01-22 10:11] LABS: Absolute Neutrophils -Man Diff 1.8 10^3/uL (1.4-6.5); Hypochromasia 1+; Normal RBC Morphology No; Platelets Checked Yes; Polychromasia 1+
[2025-01-22 10:12] LABS: Total Cells Counted 100
--- NOTE | 2025-01-22 14:32 | CM ---
Addendum entered by Vanna Pisano 01/22/25 17:17:
[facility] stated patient was to medically complex for them to accept. waiting for [facility] and [facility]
Original Note:
Patient seen at bedside, [facility] and [facility] following discussion with patient and . await response.
--- NOTE | 2025-01-22 15:20 | W.PN.HOSP.TC ---
Addendum entered and electronically signed by Cara Martinez MD 01/22/25 15:39:
I saw and evaluated the patient independently. I reviewed the resident�s note and agree with findings and plan as documented by Dr. Serrato.
GENERAL: well developed, well nourished, male in no apparent distress
HEENT: NC/AT
HEART: regular rate and rhythm, +S1, +S2
LUNGS : clear to auscultation bilaterally
ABDOM: soft, nontender, nondistended, + bowel sounds
EXT: no cyanosis, clubbing, or edema
NEUROLOGIC: grossly intact
pt is medically stable for d/c to inpt psych facility
Acute Toxin ingestion (intentional)-- Antifreeze ingestion-ethylene glycol/methanol--suicidal ideation--s/p HD, intubation--Toxicology was also positive for fentanyl, benzodiazepines--Extubated and Central line discontinued 01/17, moved from ICU
01/18--cont 1:1--apprec psych--pt agreeable to inpt psych
Complicated urinary tract infection on Wilson's catheter with blood culture strep agalactiae positive--complicated UTI (Strep agalactiae)--wilson cath--will continue for 10 days, has received IV Unasyn 3 g 8 hourly--Augmentin 875 mg/clavulanic acid
125 mg 12 hourly started 01/17 to be completed 01/24- 7day course --S/p resolved pneumonia findings chest x-ray 01/15
Substance use disorder--His last drink was prior to admission--Alcohol level normalized at 353, benzo and fentanyl on tox screen--Currently on MSAS Protocol ranges 0-1, last done is 1--Current Phenobarb dose is 32.4mg
Hypothyroidism--TSH monitoring--Levothyroxine dose was increased to 75mcg this admission
Mild anemia, like 2 to Chronic alcohol use- Currently on B1/B9 supplementation
Code status-- Full
Disposition: In-patient psych facility, after which rehab
DVT-- Lovenox
Original Note:
Today's Communication/Plan
-
Patient is clinically ready for discharge to in-patient facility for psych management
Assessment / Plan
Assessment / Plan
Mr Mancia a 64 yr old male with PMH hypertension, hypothyroidism, alcohol use disorder who presented to the 7 days ago following ED chronic alcohol intake for the past 1 year admitted to the ER with incoherent state due to ethylene glycol
ingestion and other possible substances.
# Acute Toxin ingestion; Antifreeze ingestion-ethylene glycol/methanol:
Vitals, hemodynamically stable,
Off Ventilatory support and HD X2.
Labs now stabilized with Ethylene Glycol 6.33, Serum Osmo 328 high, PH- 7.43, CO2- 36 lactic acid at 1.9
Toxicology was also positive for fentanyl, benzodiazepines.
Extubated and Central line discontinued 01/17, moved from ICU 01/18
He is now clnically stable
# Intentional Polysubstance ingestion;
# Suicidal attempt
-On 1 to 1
-Psych following, reccs appreciated with thanks
-He is now clinically stable and can be discharged to inpatient psych facility for psych treatment
# Complicated urinary tract infection on Wilson's catheter with blood culture strep agalactiae positive:
Currently he has no allergy history,
Complicated UTI --on Wilson's catheters will continue for 10 days, has received IV Unasyn 3 g 8 hourly.
Augmentin 875 mg/clavulanic acid 125 mg 12 hourly started 01/17 to be completed 01/24- 7day course .
S/p resolved pneumonia findings chest x-ray 01/15:
Mild opacity in the basilar segments of the lower lobes of both lungs which appears unchanged. Diagnostic possibilities are (1) subsegmental atelectasis/scarring or (2) mild aspiration pneumonia.
2. Mildly decreased bilateral lung volumes.
3. Endotracheal tube, nasogastric tube, and right IJ central venous catheter in place.
# Substance use disorder:
His last drink was prior to admission
Alcohol level normalized at 353, benzo and fentanyl on tox screen
Currently on MSAS Protocol ranges 0-1, last done is 1,
Current Phenobarb dose finished yesterday
# Hypothyroidism:
Continue home dose of Levothyroxine 75mcg
#Mild anemia, like 2 to Chronic alcohol use
- Currently on B1/B9 supplememtation
Code: Full
Disposition: In-patient psych facility, after which rehab
Diet: Regular
DVT: Lovenox
Anticipated Discharge: Within 24 hours
Subjective/Interval History
-
Date of Service: January 22, 2025
Patient seen
No complains today
Objective Data
-
Labs:
Laboratory Results
01/22/25
07:54
WBC 4.5 L
Hgb 11.9 L
Hct 34.2 L
Plt Count 409 H D
Sodium 135
Potassium 4.2
Chloride 101
Carbon Dioxide 27
BUN 7 L
Creatinine 0.6 L
Glucose 99
Calcium 9.1
Total Bilirubin 0.3
AST 25
ALT 19
Alkaline Phosphatase 25 L
Vital Signs:
Vital Signs
Temp Pulse Resp BP Pulse Ox
99.0 F 76 16 131/77 98
01/22/25 07:23 01/22/25 07:23 01/22/25 07:23 01/22/25 07:23 01/22/25 07:23
I&O
01/21/25 01/22/25 01/23/25
06:59 06:59 06:59
Intake Total 1300 / 1300 1200 / 1660 1180 / 1180
Balance 1300 / 1300 1200 / 1660 1180 / 1180
Review of Systems
-
All other systems: Reviewed and negative
Psych: Reports Other (Patient with Intentional toxin ingestion)
Physical Exam
-
General: Well Developed
HEENT: Normocephalic and Atraumatic
Respiratory: Clear to Auscultation
Cardiac: Regular Rhythm and S1/S2
GI: Nontender, Nondistended and Normal Bowel Sounds
Skin: Warm and Dry
Neuro: Awake, Alert, Oriented and AO x 3; Negative Tremors
Psych: Calm
[2025-01-22 15:40] VITALS: BP 136/76
[2025-01-22] MEDS: LOVENOX SC (18:21)
[2025-01-22 21:58] VITALS: BP 120/73
--- NOTE | 2025-01-22 22:20 | W.PN.UPDATE ---
Update Note
Progress Note Update
note from 01/18 timed 15:37 is note from today. will work with IT to get appropriately timed
[2025-01-23 07:41] VITALS: BP 124/77
[2025-01-23] MEDS: SYNTHROID 75 MCG PO (08:37)
[2025-01-23] MEDS: VITAMIN B1 100 MG PO (08:38)
[2025-01-23] MEDS: AUGMENTIN 875 MG/125 MG 1 TABLET PO (08:38)
[2025-01-23] MEDS: FOLVITE 1 MG PO (08:39)
[2025-01-23] MEDS: MIRALAX PO (08:40)
[2025-01-23] MEDS: SENOKOT-S PO (08:40)
--- NOTE | 2025-01-23 08:43 | W.PN.HOSP.TC ---
Addendum entered and electronically signed by Cara Martinez MD 01/23/25 16:21:
I saw and evaluated the patient independently. I reviewed the resident�s note and agree with findings and plan as documented by Dr. Serrato.
GENERAL: well developed, well nourished, male in no apparent distress
HEENT: NC/AT
HEART: regular rate and rhythm, +S1, +S2
LUNGS : clear to auscultation bilaterally
ABDOM: soft, nontender, nondistended, + bowel sounds
EXT: no cyanosis, clubbing, or edema
NEUROLOGIC: grossly intact
pt is medically stable for d/c to inpt psych facility
Acute Toxin ingestion (intentional)-- Antifreeze ingestion-ethylene glycol/methanol--suicidal ideation--s/p HD, intubation--Toxicology was also positive for fentanyl, benzodiazepines--Extubated and Central line discontinued 01/17, moved from ICU
01/18--stopped 1:1--apprec psych--pt agreeable to inpt psych--resolved
Complicated urinary tract infection on Wilson's catheter with urine culture strep agalactiae positive--complicated UTI (Strep agalactiae)--wilson cath removed----Augmentin 875 mg/clavulanic acid 125 mg 12 hourly started 01/17 to be completed 01/24-
7day course --S/p resolved pneumonia findings chest x-ray 01/15
Substance use disorder--His last drink was prior to admission--Alcohol level normalized at 353, benzo and fentanyl on tox screen--Currently on MSAS Protocol ranges 0-1, last done is 1--finished phenobarb and no longer taking
Hypothyroidism--TSH WNL--Levothyroxine dose 75mcg
Mild anemia--due to Chronic alcohol use- Currently on folate/thiamine supplementation
Code status-- Full
Disposition: In-patient psych facility
DVT-- Lovenox will stop at d/c
Original Note:
Today's Communication/Plan
-
Pending discharge when bed available
Assessment / Plan
Assessment / Plan
Mr Whitney is a 64 yr old male with PMH hypertension, hypothyroidism, alcohol use disorder who presented to the 7 days ago following ED chronic alcohol intake for the past 1 year admitted to the ER with incoherent state due to ethylene glycol
ingestion and other possible substances.
# Acute Toxin ingestion; Antifreeze ingestion-ethylene glycol/methanol:
Vitals, hemodynamically stable,
Off Ventilatory support and HD X2.
Labs now stabilized with Ethylene Glycol 6.33, Serum Osmo 328 high, PH- 7.43, CO2- 36 lactic acid at 1.9
Toxicology was also positive for fentanyl, benzodiazepines.
Extubated and Central line discontinued 01/17, moved from ICU 01/18
# Intentional Polysubstance ingestion;
# Suicidal attempt
-On 1 to 1
-Psych following, reccs appreciated with thanks
-He is now clinically stable and can be discharged to inpatient psych facility for psych treatment
# Complicated urinary tract infection on Wilson's catheter with blood culture strep agalactiae positive:
Currently he has no allergy history,
Complicated UTI --on Wilson's catheters will continue for 10 days, has received IV Unasyn 3 g 8 hourly.
Augmentin 875 mg/clavulanic acid 125 mg 12 hourly started 01/17 to be completed 01/24- 7day course .
S/p resolved pneumonia findings chest x-ray 01/15:
# Substance use disorder:
His last drink was prior to admission
Alcohol level normalized at 353, benzo and fentanyl on tox screen
Currently on MSAS Protocol ranges 0-1, last done is 1,
Current Phenobarb dose finished yesterday
# Hypothyroidism:
Continue home dose of Levothyroxine 75mcg
#Mild anemia, macrocytic, like 2 to Chronic alcohol use
- Currently on B1/B9 supplementation
#Hypertension
- Has H/O of essential hypertension, has been off meds this admission and has been normotensive
- Fu with Primary care out patient
He is now clinically stable, all acute conditions at this hospitalization has resolved.
He is to complete his anti-biotics prescribed, no need to continue after that.
He is to continue medication for his chronic conditions.
Code: Full
Disposition: In-patient psych facility, after which rehab
Diet: Regular
DVT: Lovenox
Anticipated Discharge: Within 24 hours
Subjective/Interval History
-
Date of Service: January 23, 2025
Patient seen
No complains today
Objective Data
-
Labs:
Laboratory Results
01/23/25
07:39
WBC Pending
Hgb Pending
Hct Pending
Plt Count Pending
Sodium Pending
Potassium Pending
Chloride Pending
Carbon Dioxide Pending
BUN Pending
Creatinine Pending
Glucose Pending
Calcium Pending
Vital Signs:
Vital Signs
Temp Pulse Resp BP Pulse Ox
98.6 F 84 16 124/77 97
01/23/25 07:41 01/23/25 07:41 01/23/25 07:41 01/23/25 07:41 01/23/25 07:41
I&O
01/22/25 01/23/25 01/24/25
06:59 06:59 06:59
Intake Total 1200 / 1660 2720 / 2720 50 / 50
Balance 1200 / 1660 2720 / 2720 50 / 50
Review of Systems
-
History Source: Patient
All other systems: Reviewed and negative
Genitourinary: Reports No Symptoms
Neuro: Reports No Symptoms
Physical Exam
-
General: Well Developed
HEENT: Normocephalic and Atraumatic
Respiratory: Clear to Auscultation
Cardiac: Regular Rhythm and S1/S2
GI: Soft, Nontender and Nondistended
Musculoskeletal: No Edema
Skin: Warm and Dry
Neuro: Awake, Alert, Oriented and Tremors (Some tremors on exam)
Psych: Negative Agitated or Anxious
Data Reviewed
-
Labs: Labs Reviewed by me, Discussed with Physician and Discussed with Patient
[2025-01-23 08:45] LABS: Blood Urea Nitrogen 6 mg/dl (9-20); Calcium 9.3 mg/dl (8.4-10.2); Carbon Dioxide 25 mmol/L (22-30); Estimated Creatinine Clearance 114 ml/min; Glucose 95 mg/dl (70-99); Potassium 3.9 mmol/L (3.5-5.1); Sodium 137 mmol/L (135-145); eGFR > 60.00
[2025-01-23 08:46] LABS: Hematocrit 36.9 % (39.0-52.0); Hemoglobin 12.6 g/dL (13.0-18.0); Mean Corp Hgb Conc. 34.1 g/dL (33.0-37.0); Mean Corpuscular Volume 101.4 fL (80.0-94.0); Platelet Count 492 10^3/uL (130-400); Red Cell Dist. Width 12.6 % (11.5-14.5)
[2025-01-23 08:59] LABS: Chloride 101 mmol/L (98-107)
--- NOTE | 2025-01-23 12:30 | CM ---
Addendum entered by Vanna Pisano 01/24/25 07:42:
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 CM spoke with patient and updated about plan. Patient in agreement and indicated he would call to his . CM updated floor and physician.
Addendum entered by Vanna Pisano 01/23/25 17:44:
On phone with auth provider; [facility];[address] [place] [address]
[phone], pig farmer Marcia Valerio. CM called to Марина bourgeois and provided information. Марина bourgeois;are awaiting for ETA.
Addendum entered by Vanna Pisano 01/23/25 16:54:
accepted to Марина Bourgeois and [facility]. CM will call to start auth. CM will update patient , physician also updated. CM will continue to follow for discharge planning needs.
Addendum entered by Vanna Pisano 01/23/25 15:22:
[facility] declined, CM spoke with Hetal again and updated notes faxed in addition [facility] x[facility] [place] [place] [facility] CM completed [facility] and with psychiatry input also included the 201. Patient
no longer on 1:1 and per PT is no longer qualified to have therapy. CM will continue to follow for discharge planning needs.
Plan; 201
Original Note:
Fax sent to [facility] pending response. CM will continue to follow for discharge planning needs.
--- NOTE | 2025-01-23 14:30 | W.PN.UPDATE ---
Update Note
Progress Note Update
patient seen chart reviewed. spoke with cm. patient 's at bedside. the patient is improving. he was awake and alert. he was reading a book of short stories which he was able to tell me about. his labs look okay minor drop in hgb to 12.6 but
otherwise nothing of serious note. ms tiwari tells me he was deemed 'too acute'. not clear why certainly not medically. vital signs are good. has not required prns of ativan. not on phenobarb. i suspect it is bc he has been on one to one which we
likely could have dc'ed before today. it is now discontinued. patient is motivated and ready for dual dx treatment in my opinion.
[2025-01-23 15:28] VITALS: BP 137/84
--- NOTE | 2025-01-23 16:21 | W.DCSUMMARY ---
Addendum entered and electronically signed by Cara Martinez MD 01/24/25 06:56:
Read, reviewed, and agree. See same day progress note for additional details. Time spent coordinating care, DC planning, review of DC plan of care with resident, transition of care, review of records in EMR, med rec, consults, notes, d/w
consultants, nursing, family, and CM = 31 minutes
CORRECTION: He IS being discharged to an inpatient psych facility. He will likely not need a physical rehab facility afterwards as he is ambulating around the room without assistance.
Original Note:
Discharge Summary
Discharge Data
Date of Admission: 01/14/25
Date of Discharge: 01/23/25
-
Pending Results: No
Hospital Course
Discharging Physician : Nu Serrato MD, Juan,Cara Ren MD
Disposition : In-patient Psychiatry facility
Primary care physician : Dr. Oli Corona
Principal Discharge diagnosis :
Ethylene glycol ingestion
Ethanol intoxication
Ventilator dependent respiratory failure
Suicidal attempt- major depression.
Alcohol use disorder, with withdrawal
Catheter associated urinary tract infection
Chronic Discharge diagnosis :
Essential hypertension
Hypothyroidism
Hospital Course :
Mr Caballero is a 64yr with a past medical history of hypertensive disease, hypothyroidism and alcohol use disorder who presented to the [facility] ED with altered mental status on 01/14/2025 following an intentional Poly substance/ toxin overdose that
included ethylene glycol, ethanol, and gasoline.
On presentation to the ED, He was somnolent, confused with slurred speech. Vital signs were stable.
Initial labs showed BAG 353, lactate 3.2, VBG with pH 7.38/pCO2 51/bicarb 30.2. ECG with left anterior fascicular block though otherwise NSR and no acute ischemic findings.
In the ED he was intubated due to his worsening mental status. Was ordered propofol, IV fluids, IV thiamine and fomepizole.
He was subsequently admitted in the ICU, he received ventilatory support which was later weaned and discontinued 01/17/2025.
He required 2 sessions of hemodialysis due to elevated ethylene glycol level with persistent osmolar gap, however renal function remains stable.
He developed a complicated catheter associated urinary tract infection and was placed on appropriate antibiotic therapy now completed.
Once conscious was monitored with MSAS protocol has completed phenobarbital taper protocol.
With improving clinical status he was downgraded from the ICU 01/18 and was monitored one-to-one.
His antihypertensive medications currently being placed on hold as he has been normotensive since admission, post alcohol withdrawal.
He is not being discharged to an inpatient psych facility to continue treatment after which he has agreed to transition to a rehab facility.
He is to follow-up with his primary care provider within the next 7 days for further treatment plans.
Important imaging findings :
CT Head W/o Iv Contrast
01/14/2025 - No evidence of acute intracranial abnormality.
Chest xray
01/16/2025
Lines and tubes as described above.
No acute disease of the chest.
01/17/2025
Lines and tubes, as above.
Low lung volumes with minimal bibasilar opacities, likely atelectasis. No significant pleural effusions. Negative for pneumothorax.
Procedure findings :
Hemodialysis
01/14/2025
01/15/2025
Discharge Plan
-
Patient Disposition: Home (Routine Discharge)
Discharge Diagnosis/Procedures: Ethylene glycol ingestion
Ethanol intoxication
Ventilator dependent respiratory failure
Suicidal attempt- major depression.
Alcohol use disorder, with withdrawal
Catheter associated urinary tract infection
Condition: Fair
Diet: No restrictions and As tolerated
Activity: No restrictions
Driving Restrictions: As prior to admission
Bathing Restrictions: None
Instructions: Depression, Adult (DC), Alcohol Use Disorder (DC), Suicide Prevention
Referrals:
Marcell Green MD [Active, Psychiatry]
Oli Lam MD [Active, Internal Medicine]
UNKNOWN - PT DOES,NOT KNOW [Family Provider]
Additional Discharge Medication Instructions: -Psychiatrist recommended for inpatient psychiatry care.
-Follow up with PCP within a week of discharge to discuss future for levothyroxine and blood pressure medications.
-Continue Folic acid 1 mg , thiamine Vit B1 daily.
Prescriptions:
New
folic acid 1 mg Tablet
1 mg PO DAILY 30 Days Qty: 30 0RF
acetaminophen 325 mg Tablet
650 mg PO Q6HPRN PRN (Reason: T > 100.3 F) 30 Days Qty: 30 0RF
thiamine mononitrate (vit B1) 100 mg Tablet
100 mg PO BID Qty: 30 0RF
Continued
levothyroxine [Synthroid] 75 mcg Tablet
75 mcg PO DAILY Qty: 0 0RF
Held
lisinopril-hydrochlorothiazide 20-12.5 mg Tablet
1 tab PO DAILY
Hold Instructions: Resume on 01/30/25. Hold till after visit with your primary care
Discharge Orders:
Discharge Patient (As Directed); Ordered 01/23/25
Ordered By: Nu Serrato
Discharge Date and Time
Print Language: UPPER SORBIAN
[2025-01-23] MEDS: LOVENOX SC (17:38)
[2025-01-23 18:14] VITALS: BP 148/87
== END 2025-01-23 18:35 | DRG 917 ==
LOC: 4 WEST ACU 14:32
PROVIDERS: Nurse Practitioner Primary Care; Physician Assistant; Radiology Diagnostic Radiology; ADMITTING PHYSICIAN Internal Medicine; ATTENDING PHYSICIAN Internal Medicine; CONSULT PHYSICIAN Internal Medicine Critical Care Medicine; CONSULT PHYSICIAN Psychiatry & Neurology Psychiatry; EMERGENCY PHYSICIAN Emergency Medicine; OTHER PHYSICIAN Specialist
PROC: 5A1945Z Respiratory Ventilation, 24-96 Consecutive Hours (ICD-10-PCS; 2025-01-14)
PROC: 0BH17EZ Insertion of Endotracheal Airway into Trachea, Via Natural or Artificial Opening (ICD-10-PCS; 2025-01-14)
PROC: 02HV33Z Insertion of Infusion Device into Superior Vena Cava, Percutaneous Approach (ICD-10-PCS; 2025-01-14)
PROC: 0DH67UZ Insertion of Feeding Device into Stomach, Via Natural or Artificial Opening (ICD-10-PCS; 2025-01-14)
PROC: 5A1D70Z Performance of Urinary Filtration, Intermittent, Less than 6 Hours Per Day (ICD-10-PCS; 2025-01-14)
PROC: 0BP1XDZ Removal of Intraluminal Device from Trachea, External Approach (ICD-10-PCS; 2025-01-17)
DX: T51.8X2A Toxic effect of other alcohols, intentional self-harm, initial encounter (principal); G92.8 Other toxic encephalopathy; T83.511A Infection and inflammatory reaction due to indwelling urethral catheter, initial encounter; N39.0 Urinary tract infection, site not specified; J96.91 Respiratory failure, unspecified with hypoxia; J69.0 Pneumonitis due to inhalation of food and vomit; Z99.11 Dependence on respirator [ventilator] status; F33.9 Major depressive disorder, recurrent, unspecified; E87.20 Acidosis, unspecified; N17.9 Acute kidney failure, unspecified; F10.239 Alcohol dependence with withdrawal, unspecified; E87.1 Hypo-osmolality and hyponatremia; J98.11 Atelectasis; T52.0X2A Toxic effect of petroleum products, intentional self-harm, initial encounter; I10 Essential (primary) hypertension; E03.9 Hypothyroidism, unspecified; F10.229 Alcohol dependence with intoxication, unspecified; I44.4 Left anterior fascicular block; E55.9 Vitamin D deficiency, unspecified; H54.8 Legal blindness, as defined in USA; D53.9 Nutritional anemia, unspecified; G31.2 Degeneration of nervous system due to alcohol; R40.0 Somnolence; R44.1 Visual hallucinations; E87.6 Hypokalemia; B95.1 Streptococcus, group B, as the cause of diseases classified elsewhere; Y84.6 Urinary catheterization as the cause of abnormal reaction of the patient, or of later complication, without mention of misadventure at the time of the procedure; Y92.239 Unspecified place in hospital as the place of occurrence of the external cause; Y73.2 Prosthetic and other implants, materials and accessory gastroenterology and urology devices associated with adverse incidents; Y90.8 Blood alcohol level of 240 mg/100 ml or more; Y92.481 Parking lot as the place of occurrence of the external cause; Z91.51 Personal history of suicidal behavior; Z79.890 Hormone replacement therapy; Z63.4 Disappearance and death of family member; Z81.8 Family history of other mental and behavioral disorders
CPT/HCPCS: 31500; 36556; 36600; 70450; 71045; 74018; 76937; 80048; 80053; 80143; 80179; 80306; 80307; 81003; 81015; 82010; 82077; 82375; 82550; 82693; 82805; 82962; 82977; 83036; 83605; 83735; 83930; 84100; 84439; 84443; 84478; 85025; 85027; 85610; 85730; 86704; 86706; 86803; 87040; 87070; 87077; 87086; 87147; 87205; 87340; 92526; 92610; 93005; 94002; 94003; 96361; 96374; 96375; 97116; 97163; 97167; 97530; 99291; G0257; J1451